=== PATIENT | female | born 2000 | race Two or more races ===

== ENCOUNTER 2024-11-05 08:13 | Outpatient (AMB) | payer MEDICAID, SELFPAY ==
[2024-11-05 08:27] VITALS: BP 114/77; PULSE 88; RESP 16; TEMP 36.3; O2SAT 98; BMI 29.5
--- NOTE | 2024-11-05 08:27 | AMB.OBINITIA ---
Vital Signs 11/05/24 08:27 Height 1.47 m Height Method Stated Weight 64.07 kg Weight Measurement Method Standing Scale BMI 29.5 BP 114/77 Blood Pressure Source Automatic Cuff Blood Pressure Location Left Upper Arm Position Sitting Respiration 16 Pulse 88 Pulse Source Monitor Temp 97.3 F Temp Source Oral Pulse Oximetry (%) 98 Oxygen Delivery Method Room Air Allergies/Home Meds Allergies & Medications Allergies No Known Allergies Allergy (Verified 11/05/24 08:29) Medication Reconciliation folic acid 400 mcg tablet 0.4 mg PO QDAY 11/05/24 [History Confirmed 11/05/24] Intake Visit Data Collection New Patient or Established: Established Patient (seen at [facility] within 3 years) Reason for Visit:: care Seen by Clinical Staff ONLY (RN/MA): No Environmental Resource Specialist Required: Yes Environmental Resource Specialist's name/title: Belle Dunbar Do You Feel Safe at Home: Yes Authorities Contacted: N/A PCP or OBGYN visit in last 3 months: No Hx Now: Yes Are you currently on any form of Control: No Last menstrual period: 03/24/24 Pain Present Currently: No Pain Scale Used: Gandhi-Fung/Numerical Pain scale:: 0 Smoking Status Smoking Status: Never smoker Questionnaires Covid-19 Vaccine Questionnaire Has patient been vacinated for Covid-19 Have you been vacinated for Covid-19: No PHQ-9 PHQ-2 Over the last 2 weeks, how often have you been bothered by any of the following problems? 1. Little interest or pleasure in doing things: not at all 2. Feeling down, depressed, or hopeless: not at all Total score: 0 PHQ-9 3. Trouble falling or staying asleep, or sleeping too much: Not at all 4. Feeling tired or having little energy: Not at all 5. Poor appetite or overeating: Not at all 6. Feeling bad about yourself - or that you are a failure or have let yourself or your family down: Not at all 7. Trouble concentrating on things, such as reading the newspaper or watching television: Not at all 8. Moving or speaking so slowly that other people could have noticed? - Or the opposite - being so fidgety or restless that you have been moving around a lot more than usual: not at all 9. Thoughts that you would be better off or of hurting yourself in some way: Not at all Total score: 0 Source: Developed by Drs. Blas Chavez, Madeline Palencia, Ted Maldonado and colleagues, with an educational monica from [employer]. Depression screen completed yes Social History Living Situation History Marital Status: Lives With: Family Housing: House Tobacco History Smoking Status: Never smoker Second Hand Smoke Exposure: No Alcohol History Alcohol Intake: Never Substance Use History Substance Use: none Domestic Abuse History Do You Feel Safe at Home: Yes Past Medical History Past Medical History Have you ever been diagnosed with any of the following: Neurological Problems Cerebrovascular Accident (CVA): No Transient Ischemic Attacks (TIA): No Seizures: No Guillain-Porterfield Syndrome: No Cardiology Problems Myocardial Infarction: No Cardiac Arrhythmia: No Atrial Fibrillation: No Angina: No Heart Murmur: No Respiratory Problems Chronic Obstructive Pulmonary Disease (COPD): No Asthma: No Bronchitis: No Pneumonia: No Tuberculosis: No Hx Cough: No Cough: No Wheezing: No Chest Deformities: No Smoking: No Stomache/Intestinal Problems Liver Cancer: No Hepatitis: No Cirrhosis: No Colitis: No Diverticulitis: No Diverticulosis: No Genital/Urinary Problems Chronic Kidney Disease: No Renal Disease: No Kidney Stones: No Reproductive Problems Breast Cancer: No Endometriosis: No Fibroids: No Genital Herpes: No Gonorrhea: No Pelvic Inflammatory Disease: No Polycystic Ovarian Syndrome: No Previous Pregnancies: No Syphilis: No Testicular Cancer: No Uterine Prolapse: No Musculoskeletal Problems Muscular Dystrophy: No Myasthenia Gravis: No Marfan's Syndrome: No Bone Cancer: No Arthritis: No Rheumatoid Arthritis: No Osteoporosis: No Degenerative Disk Disease: No Gout: No Scoliosis: No Carpal Tunnel Syndrome: No Head,Eye,Nose,Throat Problems Cataracts: No Glaucoma: No Blind: No Retinal Detachment: No Macular Degeneration: No Chronic Ear Infections: No Deafness: No Eye Prosthesis: No Endocrine Problems Diabetes Mellitus Type 1: No Diabetes Mellitus Type 2: No Hypoglycemia: No Ebensburg's Syndrome: No Wallace's Disease: No Hyperthyroidism: No Hypothyroidism: No Thyroid Cancer: No Parathyroid Disease: No Pituitary Disease: No Systemic Lupus Erythematosus: No Syndrome of Inappropriate Antidiuretic Hormone: No Adrenal Disease: No Graves' Disease: No Blood Problems Anemia: No Leukemia: No Hemophilia: No Thalassemia: No Sickle Cell Disease: No Clotting Problems: No Psychologic Problems Schizophrenia: No Recreational Drug Use: No Bipolar Disorder: No Depression: No Anxiety: No Behavior Problems: No Self-Mutilation: No Attention Deficit Disorder: No Attention Deficit Hyperactivity Disorder: No Depression: No Post Traumatic Stress Disorder: No Eating Disorder: No Other Problems Hospitalization: No Autoimmune Disease: No Down Syndrome: No Autism: No Developmental Delay: No Cosmetic Surgery: No Shingles: No Falls: No Blood Transfusions: No Blood Transfusion Reaction: No Anesthesia Reactions: No Organ Transplant: No Chemotherapy: No Radiation Therapy: No Hyperbaric Therapy: No MRSA: No Surgical History Angioplasty: No Appendectomy: No Bariatric Surgery: No Breast Surgery: No Cancer Surgery: No Carotid Endarterectomy: No Cholecystectomy: No Colectomy: No Colostomy: No Coronary Artery Bypass Graft: No Valve Replacement: No Herniorrhaphy: No History of Present Illness HPI Narrative Patient is a 24-year-old at 32 weeks gestation, presenting for transfer of care from an outside facility. Estimated due date is 12-30-2024 based on last menstrual period of 03-24-2024, consistent with first trimester ultrasound at 11 weeks 5 days and second trimester ultrasound at 27 weeks 2 days. Patient has a history of three full-term vaginal deliveries, all in [place], with no reported complications. Initial labs from 07-02-2024 show blood group O-positive, negative antibody screen, non-reactive RPR, negative Hepatitis B, HIV, gonorrhea, and chlamydia. One-hour glucose tolerance test on 10-01-2024 was 146, followed by a three-hour glucose tolerance test on 10-11-2024 with results of 83, 134, 117, and 100. Cystic fibrosis and NIPT testing were also performed. A follow-up ultrasound is planned around 36 weeks to assess growth and measurements. The patient confirmed taking vitamins and was asked about any issues with previous pregnancies or the current , as well as if they have any questions. OB Initial Visit Menstrual History Menstrual reliability: definite Flow: normal Menstrual regularity: regular Monthly: Yes Age at menarche: 11 On control pills at conception: No Date of positive home test: 04/22/24 Associated symptoms (LMP): Reports fatigue OB History : 4 Para: 3 Hx # Pregnancies: 0 Hx Total # of Abortions (Spontaneous & Elective): 0 # of Living Children: 3 Delivery History 1st : Child's name: Kalee date: 02/28/14 sex: female Gestational age at delivery (weeks): 40 Delivery type: vaginal Delivery complications: none History of depression before or after : No 2nd : Child's name: Beverly date: 08/05/15 sex: female Gestational age at delivery (weeks): 40 Delivery type: vaginal Delivery complications: none History of depression before or after : No 3rd : Child's name: Porsha date: 07/29/17 sex: female Gestational age at delivery (weeks): 40 Delivery type: vaginal Delivery complications: none History of depression before or after : No Infection History & Risk Evaluation History of STDs: none Genetic Screening & History Genetic Screening/Teratology Counseling - Includes patient, baby's father, or anyone in either family with: 1. Patient's age 35 years or older as of estimated date of delivery: No 2. Thalassemia (Maori, Bermudian, Mediterranean, or Background); MCV less than 80: No 3. Neural Tube Defect (Meningomyelocele, Spina Bifida, or Anencephaly): No 4. Congenital Heart Defect: No 5. Down Syndrome: No 6. Michael-Sachs (Ashkenazi Samaritan, Cajun, Angolan Emirati): No 7. Avani Disease (Ashkenazi Samaritan): No 8. Familial Dysautonomia (Ashkenazi Samaritan): No 9. Sickle Cell Disease or Trait (): No 10. Hemophilia or other blood disorders: No 11. Muscular Dystrophy: No 12. Cystic Fibrosis: No 13. Negar's Chorea: No 14. Mental Retardation/Autism: No 15. Other inherited genetic or chromosomal disorder: No 16. Maternal Metabolic Disorder (EG,TYPE 1 Diabetes, PKU): No 17. Patient or baby's father had a child with defects not listed above: No 18. Recurrent loss or a stillbirth: No 19. Medications (including supplements, vitamins, herbs or otc drugs)/illicit/recreational drugs/alcohol since last menstrual period: No 20. Any other: No Infection History 1. Live with someone with TB or exposed to TB: No 2. Rash or viral illness since last menstrual period: No 3. Hepatitis B,C: No Other (see comments) Source: [employer] OB Flowsheet OB Flowsheet Initial Weight: Not Recorded Date <del>?</del> EGA Weight Edema CTX Effacement BP Fundal ht Pres Dilation Effacement Station Visit Note Alb Glu FHR Mov 11/05/24 <del>?</del> 33w 0d 64.07 kg 114/77 145 Review of Systems Review of Systems Systems Reviewed: All systems reviewed, normal except as documented Constitutional Constitutional: Reports fatigue Endocrine Endocrine: Reports fatigue Exam General Limitations: no limitations General Appearance: alert, in no apparent distress, comfortable, cooperative, healthy appearing, well developed and well groomed Head Head exam: atraumatic, normocephalic and normal inspection Eye Eye exam: Present normal appearance, PERRL and EOMI ENT ENT exam: Present normal exam, normal oropharynx and mucous membranes moist Neck Neck exam: Present normal inspection, full ROM and trachea midline Chest Chest inspection: Present normal inspection and symmetric chest wall rise Abdominal Abdominal exam: Present soft and normal bowel sounds Psych Psychiatric exam: Present normal affect and normal mood Skin Skin exam: Present warm, dry, intact and normal color Assessment & Plan Diagnosis / Problem List (1) Supervision of high risk , unspecified, third trimester: Status: Acute Plan: , at 32 weeks gestation: - 24-year-old at 32 weeks gestation presenting for transfer of care. - BONY 12-30-2024 based on LMP 03-24-2024, consistent with ultrasounds. - History of 3 full-term vaginal deliveries in [place] without reported complications. - labs from 07-02-2024 show blood type O+, negative antibody screen, non-reactive RPR, negative for Hepatitis B, HIV, gonorrhea, and chlamydia. - One-hour glucose tolerance test on 10-01-2024 was 146, followed by 3-hour test on 10-11-2024 with values 83, 134, 117, 100. - Cystic fibrosis and NIPT testing performed, results not specified. - Current heart rate 145 bpm, noted as normal. - Patient is taking vitamins. - All records, including labs and ultrasounds, reviewed and satisfactory. Plan: - Follow-up appointment scheduled in 2 weeks. - Growth ultrasound planned for 36 weeks gestation. - Continue vitamins. Office Procedures OB Clinic LOC & Office Proc's Nursing/Assessment Patient Status: Initial/New Patient OB Clinic Nursing Assessment: Medication Reconciliation, Update PMH in EMR and Vital Signs OB Clinic Coordination of Care: Complex Care and Chronic Disease 1-5, Consent,records obtained, informed consent, Education Simp Pt/Fam, Lab and Imaging orders, Results/Orders obtained and Staff clarify orders Special Needs: Heart tones and Language special needs New Patient Charge New Patient Point Assignment: [id number] New Patient Point Charge: ELECTRONICS ENGINEERING MANAGER Level 4 ([id number]) Antepartum Initial or Follow-up Antepartum Initial Visit: Yes
== END 2024-11-05 08:56 | disposition home or self-care (01) ==
LOC: HODSOBC 08:13
PROVIDERS: PCP Obstetrics & Gynecology; Supervising Provider Obstetrics & Gynecology; Visit Provider Obstetrics & Gynecology
DX: O09.93 Supervision of high risk pregnancy, unspecified, third trimester (principal)
CPT/HCPCS: 76801; 99204; 99214; G0463

== ENCOUNTER 2024-11-19 10:53 | Outpatient (AMB) | payer MEDICAID, SELFPAY ==
--- NOTE | 2024-11-19 10:54 | AMB.OBVISIT ---
Vital Signs 11/19/24 11:03 Height 1.47 m Height Method Stated Weight 65.034 kg Weight Measurement Method Standing Scale BMI 30.1 BP 122/82 Blood Pressure Source Automatic Cuff Blood Pressure Location Left Upper Arm Position Sitting Respiration 18 Pulse 92 Pulse Source Monitor Temp 97.7 F Temp Source Oral Pulse Oximetry (%) 98 Oxygen Delivery Method Room Air Allergies/Home Meds Allergies & Medications Allergies No Known Allergies Allergy (Verified 11/19/24 11:05) Medication Reconciliation folic acid 400 mcg tablet 0.4 mg PO QDAY 11/05/24 [History Confirmed 11/19/24] Intake Visit Data Collection New Patient or Established: Established Patient (seen at [facility] within 3 years) Reason for Visit:: OBC 35w Seen by Clinical Staff ONLY (RN/MA): No Manager Asset Management Required: Yes Manager Asset Management's name/title: JOSE BETANCOURT Do You Feel Safe at Home: Yes Authorities Contacted: N/A PCP or OBGYN visit in last 3 months: No Hx Now: Yes Are you currently on any form of Control: No Last menstrual period: 03/24/24 Pain Present Currently: No Pain Scale Used: Gandhi-Fung/Numerical Pain scale:: 0 Smoking Status Smoking Status: Never smoker Questionnaires Covid-19 Vaccine Questionnaire Has patient been vacinated for Covid-19 Have you been vacinated for Covid-19: No PHQ-9 PHQ-2 Over the last 2 weeks, how often have you been bothered by any of the following problems? 1. Little interest or pleasure in doing things: more than half the days 2. Feeling down, depressed, or hopeless: several days Total score: 3 PHQ-9 3. Trouble falling or staying asleep, or sleeping too much: Several days 4. Feeling tired or having little energy: Several days 5. Poor appetite or overeating: Not at all 6. Feeling bad about yourself - or that you are a failure or have let yourself or your family down: Not at all 7. Trouble concentrating on things, such as reading the newspaper or watching television: Not at all 8. Moving or speaking so slowly that other people could have noticed? - Or the opposite - being so fidgety or restless that you have been moving around a lot more than usual: not at all 9. Thoughts that you would be better off or of hurting yourself in some way: Not at all Total score: 5.0 If you checked off any problems, how difficult have these problems made it for you to do your work, take care of things at home, or get along with other people?: somewhat difficult Source: Developed by Drs. Blas Chavez, Madeline Palencia, Ted Maldonado and colleagues, with an educational monica from [employer]. Depression screen completed yes Social History Living Situation History Lives With: Family Housing: House Tobacco History Smoking Status: Never smoker Second Hand Smoke Exposure: No Alcohol History Alcohol Intake: Never Substance Use History Substance Use: none Domestic Abuse History Do You Feel Safe at Home: Yes Past Medical History Past Medical History Have you ever been diagnosed with any of the following: Neurological Problems Cerebrovascular Accident (CVA): No Transient Ischemic Attacks (TIA): No Dementia: No Alzheimer's Disease: No Seizures: No Guillain-Moreland Syndrome: No Cardiology Problems Myocardial Infarction: No Cardiac Arrhythmia: No Atrial Fibrillation: No Angina: No Heart Murmur: No Respiratory Problems Chronic Obstructive Pulmonary Disease (COPD): No Asthma: No Bronchitis: No Pneumonia: No Tuberculosis: No Hx Cough: No Cough: No Wheezing: No Chest Deformities: No Smoking: No Stomache/Intestinal Problems Liver Cancer: No Hepatitis: No Cirrhosis: No Colitis: No Diverticulitis: No Diverticulosis: No Genital/Urinary Problems Renal Disease: No Kidney Stones: No Reproductive Problems Breast Cancer: No Endometriosis: No Fibroids: No Genital Herpes: No Gonorrhea: No Pelvic Inflammatory Disease: No Polycystic Ovarian Syndrome: No Previous Pregnancies: No Syphilis: No Testicular Cancer: No Uterine Prolapse: No Musculoskeletal Problems Muscular Dystrophy: No Myasthenia Gravis: No Marfan's Syndrome: No Bone Cancer: No Arthritis: No Rheumatoid Arthritis: No Osteoporosis: No Degenerative Disk Disease: No Gout: No Scoliosis: No Carpal Tunnel Syndrome: No Head,Eye,Nose,Throat Problems Cataracts: No Glaucoma: No Blind: No Retinal Detachment: No Macular Degeneration: No Chronic Ear Infections: No Deafness: No Eye Prosthesis: No Endocrine Problems Diabetes Mellitus Type 1: No Diabetes Mellitus Type 2: No Hypoglycemia: No Neetu's Syndrome: No Jayuya's Disease: No Hyperthyroidism: No Hypothyroidism: No Thyroid Cancer: No Parathyroid Disease: No Pituitary Disease: No Systemic Lupus Erythematosus: No Syndrome of Inappropriate Antidiuretic Hormone: No Adrenal Disease: No Graves' Disease: No Blood Problems Anemia: No Leukemia: No Hemophilia: No Thalassemia: No Sickle Cell Disease: No Clotting Problems: No Psychologic Problems Schizophrenia: No Recreational Drug Use: No Bipolar Disorder: No Depression: No Anxiety: No Behavior Problems: No Self-Mutilation: No Attention Deficit Disorder: No Attention Deficit Hyperactivity Disorder: No Depression: No Post Traumatic Stress Disorder: No Eating Disorder: No Other Problems Hospitalization: No Down Syndrome: No Autism: No Developmental Delay: No Cosmetic Surgery: No Shingles: No Falls: No Blood Transfusions: No Blood Transfusion Reaction: No Anesthesia Reactions: No Organ Transplant: No Chemotherapy: No Radiation Therapy: No Hyperbaric Therapy: No MRSA: No Surgical History Angioplasty: No Appendectomy: No Bariatric Surgery: No Breast Surgery: No Cancer Surgery: No Carotid Endarterectomy: No Cholecystectomy: No Colectomy: No Colostomy: No Coronary Artery Bypass Graft: No Valve Replacement: No Herniorrhaphy: No History of Present Illness HPI Narrative The patient is a 24-year-old at 35 weeks' gestation with an estimated due date of December 30, 2024. She reports normal movement and denies contractions. The patient mentions experiencing pain, identified as round ligament pain due to the stretching of the uterine ligaments from the weight of the growing fetus. Initial labs from 07-02-2024 show blood group O-positive, negative antibody screen, non-reactive RPR, negative Hepatitis B, HIV, gonorrhea, and chlamydia. One-hour glucose tolerance test on 10-01-2024 was 146, followed by a three-hour glucose tolerance test on 10-11-2024 with results of 83, 134, 117, and 100. Cystic fibrosis and NIPT testing were also performed. A follow-up ultrasound is planned around 36 weeks to assess growth and measurements. The patient confirmed taking vitamins and was asked about any issues with previous pregnancies or the current , as well as if they have any questions She is preparing for the baby's arrival, including setting up the car seat, and has been advised to sleep on her side for pain relief. The clinician reminded her that she could go into labor at any time and should start preparing. Review of Systems Review of Systems Systems Reviewed: All systems reviewed, normal except as documented Visit BONY Calculator Estimated Delivery Date Method Current WG Current Estimate 12/24/24 Ultrasound #2 35w 2d Other Estimates 12/29/24 LMP (Certain) 34w 4d 12/26/24 Ultrasound #1 35w 0d Initial Weight: Not Recorded Date <del>?</del> EGA Weight Edema CTX Effacement BP Fundal ht Pres Dilation Effacement Station Visit Note Alb Glu FHR Mov 11/05/24 <del>?</del> 33w 0d 64.07 kg 114/77 145 11/19/24 <del>?</del> 35w 0d 65.034 kg 122/82 160 active Exam General Limitations: no limitations General Appearance: alert, in no apparent distress, comfortable, cooperative, healthy appearing, well developed and well groomed Head Head exam: atraumatic, normocephalic and normal inspection Neck Neck exam: Present normal inspection, full ROM and trachea midline Chest Chest inspection: Present normal inspection and symmetric chest wall rise Abdominal Abdominal exam: Present soft and normal bowel sounds Extremities Extremities exam: Present normal inspection and full ROM Back Back exam: Present normal inspection and full ROM Psych Psychiatric exam: Present normal affect and normal mood Skin Skin exam: Present warm, dry, intact and normal color Assessment & Plan Diagnosis / Problem List (1) Supervision of high risk , unspecified, third trimester: Status: Acute Plan: at 32 Weeks Gestation: - Patient is 24-year-old at 35 weeks' gestation. - Estimated due date: December 30, 2024. - All previous deliveries were vaginal. - movement present, no contractions reported. - heart rate: 160 bpm (noted as normal). - Group B Streptococcus (GBS) culture swab scheduled for next week at 36 weeks gestation. - Follow-up appointment scheduled for next week. - Advised to prepare for potential labor, including having car seat ready. - Recommended sleeping on side for pain relief from ligament stretching. Round Ligament Pain: - Patient reports pain attributed to stretching of uterine ligaments. - Considered normal occurrence at this stage of . - Expected to continue until delivery. - Advised to sleep on side for pain relief. - Open line of communication maintained, patient encouraged to ask questions. Office Procedures OB Clinic LOC & Office Proc's Nursing/Assessment Patient Status: Established Patient OB Clinic Nursing Assessment: Medication Reconciliation, Update PMH in EMR and Vital Signs OB Clinic Coordination of Care: Complex Care and Chronic Disease 1-5, Consent,records obtained, informed consent, Education Simp Pt/Fam and Staff clarify orders Special Needs: Heart tones Established Patient Charge Established Patient Point Assignment: 115 Established Patient Point Charge: EP Level 3 (80-115)
[2024-11-19 11:03] VITALS: BP 122/82; PULSE 92; RESP 18; TEMP 36.5; O2SAT 98; BMI 30.1
== END 2024-11-19 11:10 | disposition home or self-care (01) ==
LOC: HODSOBC 10:53
PROVIDERS: PCP Obstetrics & Gynecology; Referring Provider Obstetrics & Gynecology; Supervising Provider Obstetrics & Gynecology; Visit Provider Obstetrics & Gynecology
DX: O09.93 Supervision of high risk pregnancy, unspecified, third trimester (principal); R10.2 Pelvic and perineal pain; Z3A.32 32 weeks gestation of pregnancy
CPT/HCPCS: 99213; G0463

== ENCOUNTER 2024-11-29 10:47 | Outpatient (AMB) | payer MEDICAID, SELFPAY ==
[2024-11-29 11:01] VITALS: BP 110/76; PULSE 89; RESP 16; TEMP 36.6; O2SAT 98; BMI 29.7
--- NOTE | 2024-11-29 11:01 | AMB.OBVISIT ---
Vital Signs 11/29/24 11:01 Height 1.47 m Height Method Stated Weight 64.183 kg Weight Measurement Method Standing Scale BMI 29.7 BP 110/76 Blood Pressure Source Automatic Cuff Blood Pressure Location Left Upper Arm Position Sitting Respiration 16 Pulse 89 Pulse Source Monitor Temp 97.9 F Temp Source Oral Pulse Oximetry (%) 98 Oxygen Delivery Method Room Air Allergies/Home Meds Allergies & Medications Allergies No Known Allergies Allergy (Verified 11/29/24 11:02) Medication Reconciliation folic acid 400 mcg tablet 0.4 mg PO QDAY 11/05/24 [History Confirmed 11/29/24] Intake Visit Data Collection New Patient or Established: Established Patient (seen at [facility] within 3 years) Reason for Visit:: CARE Seen by Clinical Staff ONLY (RN/MA): No Mold Yarn Supervisor Required: Yes Mold Yarn Supervisor's name/title: JOSE BETANCOURT Do You Feel Safe at Home: Yes Authorities Contacted: N/A PCP or OBGYN visit in last 3 months: Yes Date of Last PCP or OBGYN visit: 11/19/24 Hx Now: Yes Are you currently on any form of Control: No Last menstrual period: 03/24/24 Pain Present Currently: No Pain Scale Used: Gandhi-Ufng/Numerical Pain scale:: 0 Smoking Status Smoking Status: Never smoker Questionnaires Covid-19 Vaccine Questionnaire Has patient been vacinated for Covid-19 Have you been vacinated for Covid-19: No PHQ-9 PHQ-2 Over the last 2 weeks, how often have you been bothered by any of the following problems? 1. Little interest or pleasure in doing things: not at all 2. Feeling down, depressed, or hopeless: not at all Total score: 0 PHQ-9 3. Trouble falling or staying asleep, or sleeping too much: Not at all 4. Feeling tired or having little energy: Not at all 5. Poor appetite or overeating: Not at all 6. Feeling bad about yourself - or that you are a failure or have let yourself or your family down: Not at all 7. Trouble concentrating on things, such as reading the newspaper or watching television: Not at all 8. Moving or speaking so slowly that other people could have noticed? - Or the opposite - being so fidgety or restless that you have been moving around a lot more than usual: not at all 9. Thoughts that you would be better off or of hurting yourself in some way: Not at all Total score: 0 If you checked off any problems, how difficult have these problems made it for you to do your work, take care of things at home, or get along with other people?: not difficult at all Source: Developed by Drs. Blas Chavez, Madeline Palencia, Ted Maldonado and colleagues, with an educational monica from [employer]. Depression screen completed yes Social History Living Situation History Marital Status: Lives With: Family Housing: House Tobacco History Smoking Status: Never smoker Second Hand Smoke Exposure: No Alcohol History Alcohol Intake: Never Substance Use History Substance Use: none Domestic Abuse History Do You Feel Safe at Home: Yes Past Medical History Past Medical History Have you ever been diagnosed with any of the following: Neurological Problems Cerebrovascular Accident (CVA): No Transient Ischemic Attacks (TIA): No Dementia: No Alzheimer's Disease: No Seizures: No Guillain-[place] Syndrome: No Cardiology Problems Myocardial Infarction: No Cardiac Arrhythmia: No Atrial Fibrillation: No Angina: No Heart Murmur: No Respiratory Problems Chronic Obstructive Pulmonary Disease (COPD): No Asthma: No Bronchitis: No Pneumonia: No Tuberculosis: No Hx Cough: No Cough: No Wheezing: No Chest Deformities: No Smoking: No Stomache/Intestinal Problems Liver Cancer: No Hepatitis: No Cirrhosis: No Colitis: No Diverticulitis: No Diverticulosis: No Genital/Urinary Problems Renal Disease: No Kidney Stones: No Reproductive Problems Breast Cancer: No Endometriosis: No Fibroids: No Genital Herpes: No Gonorrhea: No Pelvic Inflammatory Disease: No Polycystic Ovarian Syndrome: No Previous Pregnancies: No Syphilis: No Testicular Cancer: No Uterine Prolapse: No Musculoskeletal Problems Muscular Dystrophy: No Myasthenia Gravis: No Marfan's Syndrome: No Bone Cancer: No Arthritis: No Rheumatoid Arthritis: No Osteoporosis: No Degenerative Disk Disease: No Gout: No Scoliosis: No Carpal Tunnel Syndrome: No Head,Eye,Nose,Throat Problems Cataracts: No Glaucoma: No Blind: No Retinal Detachment: No Macular Degeneration: No Chronic Ear Infections: No Deafness: No Eye Prosthesis: No Endocrine Problems Diabetes Mellitus Type 1: No Diabetes Mellitus Type 2: No Hypoglycemia: No [place]u's Syndrome: No Calvin's Disease: No Hyperthyroidism: No Hypothyroidism: No Thyroid Cancer: No Parathyroid Disease: No Pituitary Disease: No Systemic Lupus Erythematosus: No Syndrome of Inappropriate Antidiuretic Hormone: No Adrenal Disease: No Graves' Disease: No Blood Problems Anemia: No Leukemia: No Hemophilia: No Thalassemia: No Sickle Cell Disease: No Clotting Problems: No Psychologic Problems Schizophrenia: No Recreational Drug Use: No Bipolar Disorder: No Depression: No Anxiety: No Behavior Problems: No Self-Mutilation: No Attention Deficit Disorder: No Attention Deficit Hyperactivity Disorder: No Depression: No Post Traumatic Stress Disorder: No Eating Disorder: No Other Problems Hospitalization: No Down Syndrome: No Autism: No Developmental Delay: No Cosmetic Surgery: No Shingles: No Falls: No Blood Transfusions: No Blood Transfusion Reaction: No Anesthesia Reactions: No Organ Transplant: No Chemotherapy: No Radiation Therapy: No Hyperbaric Therapy: No MRSA: No Surgical History Angioplasty: No Appendectomy: No Bariatric Surgery: No Breast Surgery: No Cancer Surgery: No Carotid Endarterectomy: No Cholecystectomy: No Colectomy: No Colostomy: No Coronary Artery Bypass Graft: No Valve Replacement: No Herniorrhaphy: No History of Present Illness HPI Narrative The patient, Karla Gibson, is a woman at approximately 37 weeks gestation. She reports good movement and denies any contractions or other problems related to her . No CTX/LOF/VB, reports good FM+ Initial labs from 07-02-2024 show blood group O-positive, negative antibody screen, non-reactive RPR, negative Hepatitis B, HIV, gonorrhea, and chlamydia. One-hour glucose tolerance test on 10-01-2024 was 146, followed by a three-hour glucose tolerance test on 10-11-2024 with results of 83, 134, 117, and 100. Cystic fibrosis and NIPT testing were also performed. A follow-up ultrasound is planned around 36 weeks to assess growth and measurements. The patient confirmed taking vitamins and was asked about any issues with previous pregnancies or the current , as well as if they have any questions She is preparing for the baby's arrival, including setting up the car seat, and has been advised to sleep on her side for pain relief. The clinician reminded her that she could go into labor at any time and should start preparing. Review of Systems Review of Systems Systems Reviewed: All systems reviewed, normal except as documented Visit BONY Calculator Estimated Delivery Date Method Current WG Current Estimate 12/24/24 Ultrasound #2 37w 1d Other Estimates 12/29/24 LMP (Certain) 36w 3d 12/26/24 Ultrasound #1 36w 6d Initial Weight: Not Recorded Date <del>?</del> EGA Weight Edema CTX Effacement BP Fundal ht Pres Dilation Effacement Station Visit Note Alb Glu FHR Mov 11/05/24 <del>?</del> 33w 0d 64.07 kg 114/77 145 11/19/24 <del>?</del> 35w 0d 65.034 kg 122/82 160 active Exam General Limitations: no limitations General Appearance: alert, in no apparent distress, comfortable, cooperative, healthy appearing, well developed and well groomed Head Head exam: atraumatic, normocephalic and normal inspection Neck Neck exam: Present normal inspection, full ROM and trachea midline Chest Chest inspection: Present normal inspection and symmetric chest wall rise Abdominal Abdominal exam: Present soft and normal bowel sounds Extremities Extremities exam: Present normal inspection and full ROM Back Back exam: Present normal inspection and full ROM Psych Psychiatric exam: Present normal affect and normal mood Skin Skin exam: Present warm, dry, intact and normal color Assessment & Plan Diagnosis / Problem List (1) Supervision of high risk , unspecified, third trimester: Status: Acute Plan: Routine care at 37 weeks gestation Patient is approaching 37 weeks gestation. heart rate was auscultated at 161 bpm, which is within normal range. Patient reports good movement and denies contractions or other problems. - Group B Streptococcus (GBS) culture swab performed - Follow-up appointment scheduled in one week - Patient is 24-year-old - Estimated due date: December 30, 2024. - All previous deliveries were vaginal. - movement present, no contractions reported. - heart rate: 160 bpm (noted as normal). - Group B Streptococcus (GBS) culture swab scheduled for next week at 36 weeks gestation. - Follow-up appointment scheduled for next week. - Advised to prepare for potential labor, including having car seat ready. - Recommended sleeping on side for pain relief from ligament stretching. Educated the patient on labor signs, including regular contractions, lower back pain, and changes in vaginal discharge. Advised avoiding heavy lifting and getting adequate rest. Instructed to contact the office immediately if any signs occur. Discussed the importance of a balanced diet rich in folic acid, iron, and calcium, and provided a list of recommended and to-avoid foods. Emphasized avoiding high-sugar foods to reduce gestational diabetes risk. Encouraged hydration and frequent, small meals for energy. Office Procedures OB Clinic LOC & Office Proc's Nursing/Assessment Patient Status: Established Patient OB Clinic Nursing Assessment: Medication Reconciliation, Update PMH in EMR and Vital Signs OB Clinic Coordination of Care: Complex Care and Chronic Disease 1-5, Consent,records obtained, informed consent, Education Simp Pt/Fam, Lab and Imaging orders and Staff clarify orders Special Needs: Heart tones Miscellaneous Interventions: Culture Specimen Collection Established Patient Charge Established Patient Point Assignment: 145 Established Patient Point Charge: EP Level 4 (120-155)
== END 2024-11-29 11:10 | disposition home or self-care (01) ==
LOC: HODSOBC 10:47
PROVIDERS: PCP Obstetrics & Gynecology; Referring Provider Obstetrics & Gynecology; Supervising Provider Obstetrics & Gynecology; Visit Provider Obstetrics & Gynecology
DX: O09.93 Supervision of high risk pregnancy, unspecified, third trimester (principal); Z3A.37 37 weeks gestation of pregnancy
CPT/HCPCS: 99214; G0463

== ENCOUNTER 2024-12-05 10:51 | Outpatient (AMB) | payer MEDICAID, SELFPAY ==
[2024-12-05 11:03] VITALS: BP 132/82; PULSE 101; RESP 18; TEMP 36.6; O2SAT 98; BMI 30.5
--- NOTE | 2024-12-05 11:03 | AMB.OBVISIT ---
Vital Signs 12/05/24 11:03 Height 1.47 m Height Method Stated Weight 65.998 kg Weight Measurement Method Standing Scale BMI 30.5 BP 132/82 H Blood Pressure Source Automatic Cuff Blood Pressure Location Left Upper Arm Position Sitting Respiration 18 Pulse 101 H Pulse Source Monitor Temp 97.8 F Temp Source Oral Pulse Oximetry (%) 98 Oxygen Delivery Method Room Air Allergies/Home Meds Allergies & Medications Allergies No Known Allergies Allergy (Verified 02/14/25 14:29) Medication Reconciliation folic acid 400 mcg tablet 0.4 mg PO QDAY 11/05/24 [History Confirmed 02/14/25] acetaminophen 325 mg tablet 650 mg (2 x 325 mg) PO Q6HR PRN Patient rated pain of 3 #60 tabs 01/05/25 [Rx Confirmed 02/14/25] ibuprofen 400 mg tablet 800 mg (2 x 400 mg) PO Q8HR PRN Pain Scale 4-6 (Moderate #60 tabs 01/05/25 [Rx Confirmed 02/14/25] Intake Visit Data Collection New Patient or Established: Established Patient (seen at [facility] within 3 years) Reason for Visit:: CARE Seen by Clinical Staff ONLY (RN/MA): No Diamond Sizer And Sorter Required: Yes Diamond Sizer And Sorter's name/title: JOSE ABERNATHYREZ Do You Feel Safe at Home: Yes Authorities Contacted: N/A PCP or OBGYN visit in last 3 months: Yes Date of Last PCP or OBGYN visit: 11/29/24 Hx Now: Yes Are you currently on any form of Control: No Last menstrual period: 03/24/24 Pain Present Currently: No Pain Scale Used: Gandhi-Fung/Numerical Pain scale:: 0 Smoking Status Smoking Status: Never smoker Questionnaires Covid-19 Vaccine Questionnaire Has patient been vacinated for Covid-19 Have you been vacinated for Covid-19: No PHQ-9 PHQ-2 Over the last 2 weeks, how often have you been bothered by any of the following problems? 1. Little interest or pleasure in doing things: not at all 2. Feeling down, depressed, or hopeless: not at all Total score: 0 PHQ-9 3. Trouble falling or staying asleep, or sleeping too much: Not at all 4. Feeling tired or having little energy: Not at all 5. Poor appetite or overeating: Not at all 6. Feeling bad about yourself - or that you are a failure or have let yourself or your family down: Not at all 7. Trouble concentrating on things, such as reading the newspaper or watching television: Not at all 8. Moving or speaking so slowly that other people could have noticed? - Or the opposite - being so fidgety or restless that you have been moving around a lot more than usual: not at all 9. Thoughts that you would be better off or of hurting yourself in some way: Not at all Total score: 0 Source: Developed by Drs. Blas Chavez, Madeline Palencia, Ted Maldonado and colleagues, with an educational monica from [employer]. Depression screen completed yes Social History Living Situation History Marital Status: Lives With: Family Housing: House Tobacco History Smoking Status: Never smoker Second Hand Smoke Exposure: No Alcohol History Alcohol Intake: Never Substance Use History Substance Use: none Domestic Abuse History Do You Feel Safe at Home: Yes Past Medical History Past Medical History Have you ever been diagnosed with any of the following: Neurological Problems Cerebrovascular Accident (CVA): No Transient Ischemic Attacks (TIA): No Dementia: No Alzheimer's Disease: No Seizures: No Guillain-[place] Syndrome: No Cardiology Problems Myocardial Infarction: No Cardiac Arrhythmia: No Atrial Fibrillation: No Angina: No Heart Murmur: No Hypertension: No Respiratory Problems Chronic Obstructive Pulmonary Disease (COPD): No Asthma: No Bronchitis: No Pneumonia: No Tuberculosis: No Hx Cough: No Cough: No Wheezing: No Chest Deformities: No Smoking: No Stomache/Intestinal Problems Liver Cancer: No Hepatitis: No Cirrhosis: No Colitis: No Diverticulitis: No Diverticulosis: No Genital/Urinary Problems Chronic Kidney Disease: No Renal Disease: No Kidney Stones: No Reproductive Problems Breast Cancer: No Endometriosis: No Fibroids: No Genital Herpes: No Gonorrhea: No Pelvic Inflammatory Disease: No Polycystic Ovarian Syndrome: No Previous Pregnancies: No Syphilis: No Testicular Cancer: No Uterine Prolapse: No Musculoskeletal Problems Muscular Dystrophy: No Myasthenia Gravis: No Marfan's Syndrome: No Bone Cancer: No Arthritis: No Rheumatoid Arthritis: No Osteoporosis: No Degenerative Disk Disease: No Gout: No Scoliosis: No Carpal Tunnel Syndrome: No Head,Eye,Nose,Throat Problems Cataracts: No Glaucoma: No Blind: No Retinal Detachment: No Macular Degeneration: No Chronic Ear Infections: No Deafness: No Eye Prosthesis: No Endocrine Problems Diabetes Mellitus Type 1: No Diabetes Mellitus Type 2: No Hypoglycemia: No [place]'s Syndrome: No [place]'s Disease: No Hyperthyroidism: No Hypothyroidism: No Thyroid Cancer: No Parathyroid Disease: No Pituitary Disease: No Systemic Lupus Erythematosus: No Syndrome of Inappropriate Antidiuretic Hormone: No Adrenal Disease: No Graves' Disease: No Blood Problems Anemia: No Leukemia: No Hemophilia: No Thalassemia: No Sickle Cell Disease: No Clotting Problems: No Psychologic Problems Schizophrenia: No Recreational Drug Use: No Bipolar Disorder: No Depression: No Anxiety: No Behavior Problems: No Self-Mutilation: No Attention Deficit Disorder: No Attention Deficit Hyperactivity Disorder: No Depression: No Post Traumatic Stress Disorder: No Eating Disorder: No Other Problems Hospitalization: No Down Syndrome: No Autism: No Developmental Delay: No Cosmetic Surgery: No Shingles: No Falls: No Blood Transfusions: No Blood Transfusion Reaction: No Anesthesia Reactions: No Organ Transplant: No Chemotherapy: No Radiation Therapy: No Hyperbaric Therapy: No MRSA: No Hepatitis A: No Hepatitis B: No Hepatitis C: No Communicable Disease: No Cancer: No Cervical Cancer: No Lung Cancer: No Ovarian Cancer: No Surgical History Angioplasty: No Appendectomy: No Bariatric Surgery: No Breast Surgery: No Cancer Surgery: No Carotid Endarterectomy: No Cholecystectomy: No Colectomy: No Colostomy: No Coronary Artery Bypass Graft: No Valve Replacement: No Herniorrhaphy: No History of Present Illness HPI Narrative Presents for visit. Scheduled for induction of labor on 12/10/2024. No CTX/LOF/VB. FM not perceived. No LÓPEZ/ VS, Epig/RUQ Pain Exam General General Appearance: alert, in no apparent distress and healthy appearing Head Head exam: atraumatic Neck Neck exam: Present normal inspection and trachea midline Chest Chest inspection: Present normal inspection and symmetric chest wall rise External exam: Present normal external exam; Absent tenderness Neuro Neurological exam: Present oriented X3 Psych Psychiatric exam: Present normal affect and normal mood Office Procedures OB Clinic LOC & Office Proc's Nursing/Assessment Patient Status: Established Patient OB Clinic Nursing Assessment: Medication Reconciliation, Update PMH in EMR and Vital Signs OB Clinic Coordination of Care: Complex Care and Chronic Disease 1-5, Consent,records obtained, informed consent, Education Simp Pt/Fam and Staff clarify orders Special Needs: Heart tones Established Patient Charge Established Patient Point Assignment: 115 Established Patient Point Charge: EP Level 3 (80-115) Assessment & Plan Diagnosis / Problem List (1) Supervision of high risk , unspecified, third trimester: Status: Acute Plan labor precautions reviewed. Return in 1 weeks.
== END 2024-12-05 11:12 | disposition home or self-care (01) ==
LOC: HODSOBC 10:51
PROVIDERS: Supervising Provider Obstetrics & Gynecology; Visit Provider Obstetrics & Gynecology
DX: O09.93 Supervision of high risk pregnancy, unspecified, third trimester (principal); Z3A.00 Weeks of gestation of pregnancy not specified
CPT/HCPCS: 99213; G0463

== ENCOUNTER 2024-12-11 11:16 | Outpatient (AMB) | payer MEDICAID, SELFPAY ==
[2024-12-11 11:34] VITALS: BP 122/79; PULSE 100; RESP 16; TEMP 36; O2SAT 99; BMI 30.7
--- NOTE | 2024-12-11 11:34 | OBCLNT_ITS ---
Vital Signs 12/11/24 11:34 Height 1.47 m Height Method Stated Weight 66.395 kg Weight Measurement Method Standing Scale BMI 30.7 BP 122/79 Blood Pressure Source Automatic Cuff Blood Pressure Location Left Upper Arm Position Sitting Respiration 16 Pulse 100 Pulse Source Monitor Temp 96.8 F Temp Source Oral Pulse Oximetry (%) 99 Oxygen Delivery Method Room Air Allergies/Home Meds Allergies & Medications Allergies No Known Allergies Allergy (Verified 12/19/24 09:07) Medication Reconciliation folic acid 400 mcg tablet 0.4 mg PO QDAY 11/05/24 [History Confirmed 12/19/24] Intake Visit Data Collection New Patient or Established: Established Patient (seen at [facility] within 3 years) Reason for Visit:: OBC Seen by Clinical Staff ONLY (RN/MA): No Party Plan Salesperson Required: Yes Party Plan Salesperson's name/title: JOSE BETANCOURT / CONVEYOR FEEDER OFFBEARER Do You Feel Safe at Home: Yes Authorities Contacted: N/A PCP or OBGYN visit in last 3 months: Yes Date of Last PCP or OBGYN visit: 12/05/24 Hx Now: Yes Are you currently on any form of Control: No Pain Present Currently: No Pain Scale Used: Gandhi-Fung/Numerical Pain scale:: 0 Smoking Status Smoking Status: Never smoker Questionnaires Covid-19 Vaccine Questionnaire Has patient been vacinated for Covid-19 Have you been vacinated for Covid-19: Yes PHQ-9 PHQ-2 Over the last 2 weeks, how often have you been bothered by any of the following problems? 1. Little interest or pleasure in doing things: not at all 2. Feeling down, depressed, or hopeless: not at all Total score: 0 PHQ-9 3. Trouble falling or staying asleep, or sleeping too much: Not at all 4. Feeling tired or having little energy: Not at all 5. Poor appetite or overeating: Not at all 6. Feeling bad about yourself - or that you are a failure or have let yourself or your family down: Not at all 7. Trouble concentrating on things, such as reading the newspaper or watching television: Not at all 8. Moving or speaking so slowly that other people could have noticed? - Or the opposite - being so fidgety or restless that you have been moving around a lot more than usual: not at all 9. Thoughts that you would be better off or of hurting yourself in some way: Not at all Total score: 0 If you checked off any problems, how difficult have these problems made it for you to do your work, take care of things at home, or get along with other people?: not difficult at all Source: Developed by Drs. Blas Chavez, Madeline Palencia, Ted Maldonado and colleagues, with an educational monica from [employer]. Depression screen completed yes Social History Living Situation History Marital Status: Lives With: Family Housing: House Tobacco History Smoking Status: Never smoker Second Hand Smoke Exposure: No Alcohol History Alcohol Intake: Never Substance Use History Substance Use: none Domestic Abuse History Do You Feel Safe at Home: Yes Past Medical History Past Medical History Have you ever been diagnosed with any of the following: Neurological Problems Cerebrovascular Accident (CVA): No Transient Ischemic Attacks (TIA): No Dementia: No Alzheimer's Disease: No Seizures: No Guillain-[place] Syndrome: No Cardiology Problems Myocardial Infarction: No Cardiac Arrhythmia: No Atrial Fibrillation: No Angina: No Heart Murmur: No Hypertension: No Respiratory Problems Chronic Obstructive Pulmonary Disease (COPD): No Asthma: No Bronchitis: No Pneumonia: No Tuberculosis: No Hx Cough: No Cough: No Wheezing: No Chest Deformities: No Smoking: No Stomache/Intestinal Problems Liver Cancer: No Hepatitis: No Cirrhosis: No Colitis: No Diverticulitis: No Diverticulosis: No Genital/Urinary Problems Renal Disease: No Kidney Stones: No Reproductive Problems Breast Cancer: No Endometriosis: No Fibroids: No Genital Herpes: No Gonorrhea: No Pelvic Inflammatory Disease: No Polycystic Ovarian Syndrome: No Previous Pregnancies: No Syphilis: No Uterine Prolapse: No Musculoskeletal Problems Muscular Dystrophy: No Myasthenia Gravis: No Marfan's Syndrome: No Bone Cancer: No Arthritis: No Rheumatoid Arthritis: No Osteoporosis: No Degenerative Disk Disease: No Gout: No Scoliosis: No Carpal Tunnel Syndrome: No Head,Eye,Nose,Throat Problems Cataracts: No Glaucoma: No Blind: No Retinal Detachment: No Macular Degeneration: No Chronic Ear Infections: No Deafness: No Eye Prosthesis: No Endocrine Problems Diabetes Mellitus Type 1: No Diabetes Mellitus Type 2: No Hypoglycemia: No Neetu's Syndrome: No Calvin's Disease: No Hyperthyroidism: No Hypothyroidism: No Thyroid Cancer: No Parathyroid Disease: No Pituitary Disease: No Systemic Lupus Erythematosus: No Syndrome of Inappropriate Antidiuretic Hormone: No Adrenal Disease: No Graves' Disease: No Blood Problems Anemia: No Leukemia: No Hemophilia: No Thalassemia: No Sickle Cell Disease: No Clotting Problems: No Psychologic Problems Schizophrenia: No Recreational Drug Use: No Bipolar Disorder: No Depression: No Anxiety: No Behavior Problems: No Self-Mutilation: No Attention Deficit Disorder: No Attention Deficit Hyperactivity Disorder: No Depression: No Post Traumatic Stress Disorder: No Eating Disorder: No Other Problems Hospitalization: No Down Syndrome: No Autism: No Developmental Delay: No Cosmetic Surgery: No Shingles: No Falls: No Blood Transfusions: No Blood Transfusion Reaction: No Anesthesia Reactions: No Organ Transplant: No Chemotherapy: No Radiation Therapy: No Hyperbaric Therapy: No MRSA: No Hepatitis A: No Hepatitis B: No Hepatitis C: No Communicable Disease: No Cancer: No Cervical Cancer: No Lung Cancer: No Ovarian Cancer: No Surgical History Angioplasty: No Appendectomy: No Bariatric Surgery: No Breast Surgery: No Cancer Surgery: No Carotid Endarterectomy: No Cholecystectomy: No Colectomy: No Colostomy: No Coronary Artery Bypass Graft: No Valve Replacement: No Herniorrhaphy: No History of Present Illness HPI Narrative Karla Gibson, a woman at 38 weeks and 1 days gestation, presents for a routine visit. Her estimated delivery date is 12-24-2024. No CTX/LOF/VB. FM not perceived. No LÓPEZ/ VS, Epig/RUQ Pain Review of Systems Review of Systems Systems Reviewed: All systems reviewed, normal except as documented Visit BONY Calculator Estimated Delivery Date Method Current WG Current Estimate 12/24/24 Ultrasound #2 40w 0d Other Estimates 12/29/24 LMP (Certain) 39w 2d 12/26/24 Ultrasound #1 39w 5d Initial Weight: Not Recorded Date -?-?-?-?-?-?-?-?-?-?-?-?- EGA Weight Edema CTX Effacement BP Fundal ht Pres Dilation Effacement Station Visit Note Alb Glu FHR Mov 11/05/24 -?-?-?-?-?-?-?-?-?-?-?-?- 33w 0d 64.07 kg 114/77 145 11/19/24 -?-?-?-?-?-?-?-?-?-?-?-?- 35w 0d 65.034 kg 122/82 160 active 12/11/24 -?-?-?-?-?-?-?-?-?-?-?-?- 38w 1d 66.395 kg 122/79 No C TX/LOF/VB. FM not perceived. No LÓPEZ/ VS, Epig/RUQ Pain P/E: Educated the patient on lab or signs, including regular contractions, lower back pain, and changes in vaginal discharge. Advised avoiding heavy lifting and getting adequate rest. Instructed to contact the office immediately if any signs occur. Discussed the importance of a balanced diet rich in folic acid, iron, and calcium, and provided a list of recommended and to-avoid foods. Emphasized avoiding high-sugar foods to reduce gestational diabetes risk. Encouraged hydration and frequent, small meals for energy.. 145 active 12/19/24 -?-?-?-?-?-?-?-?-?-?-?-?- 39w 2d 66.224 kg 122/82 No CTX/LOF/VB. FM not perceived. No LÓPEZ/ VS, Epig/RUQ Pain - Schedule induction for next week (12/30 ) if spontaneous labor does not occur - Instruct patient to have someone nearb y who can drive her to the hospital - No further appointments sched uled - Will call hospital to book induction d ate - Provide patient with induction scheduling information 155 active Exam General Limitations: no limitations General Appearance: alert, in no apparent distress, comfortable, cooperative, healthy appearing, well developed and well groomed Head Head exam: atraumatic, normocephalic and normal inspection Chest Chest inspection: Present normal inspection and symmetric chest wall rise Abdominal Abdominal exam: Present soft and normal bowel sounds Psych Psychiatric exam: Present normal affect and normal mood Skin Skin exam: Present warm, dry, intact and normal color Assessment & Plan Diagnosis / Problem List (1) Supervision of high risk , unspecified, third trimester: Status: Acute Plan Educated the patient on labor signs, including regular contractions, lower back pain, and changes in vaginal discharge. Advised avoiding heavy lifting and getting adequate rest. Instructed to contact the office immediately if any signs occur. Discussed the importance of a balanced diet rich in folic acid, iron, and calcium, and provided a list of recommended and to-avoid foods. Emphasized avoiding high-sugar foods to reduce gestational diabetes risk. Encouraged hydration and frequent, small meals for energy.. Office Procedures OB Clinic LOC & Office Proc's Nursing/Assessment Patient Status: Established Patient OB Clinic Nursing Assessment: BP Monitoring, Medication Reconciliation, Update PMH in EMR and Vital Signs OB Clinic Coordination of Care: Consent,records obtained, informed consent, Education Simp Pt/Fam and Staff clarify orders Special Needs: Heart tones Established Patient Charge Established Patient Point Assignment: 105 Established Patient Point Charge: EP Level 3 (80-115)
== END 2024-12-11 11:50 | disposition home or self-care (01) ==
LOC: HODSOBC 11:16
PROVIDERS: Supervising Provider Obstetrics & Gynecology; Visit Provider Obstetrics & Gynecology
DX: O09.93 Supervision of high risk pregnancy, unspecified, third trimester (principal); Z3A.38 38 weeks gestation of pregnancy
CPT/HCPCS: 99213; G0463

== ENCOUNTER 2024-12-19 08:59 | Outpatient (AMB) | payer MEDICAID, SELFPAY ==
--- NOTE | 2024-12-19 09:04 | OBCLNT_ITS ---
Vital Signs 12/19/24 09:06 Height 1.47 m Height Method Stated Weight 66.224 kg Weight Measurement Method Standing Scale BMI 30.6 BP 122/82 Blood Pressure Source Automatic Cuff Blood Pressure Location Left Upper Arm Position Sitting Respiration 18 Pulse 87 Pulse Source Monitor Temp 97.6 F Temp Source Temporal Artery Scan Pulse Oximetry (%) 97 Oxygen Delivery Method Room Air Allergies/Home Meds Allergies & Medications Allergies No Known Allergies Allergy (Verified 12/19/24 09:07) Medication Reconciliation folic acid 400 mcg tablet 0.4 mg PO QDAY 11/05/24 [History Confirmed 12/19/24] Intake Visit Data Collection New Patient or Established: Established Patient (seen at [facility] within 3 years) Reason for Visit:: Weekly Supervisor Cigar Making Machine Required: Yes Supervisor Cigar Making Machine's name/title: Belle Dunbar Ma Do You Feel Safe at Home: Yes Authorities Contacted: N/A PCP or OBGYN visit in last 3 months: Yes Pain Present Currently: No Smoking Status Smoking Status: Never smoker Questionnaires Covid-19 Vaccine Questionnaire Has patient been vacinated for Covid-19 Have you been vacinated for Covid-19: No PHQ-9 PHQ-2 Over the last 2 weeks, how often have you been bothered by any of the following problems? 1. Little interest or pleasure in doing things: not at all 2. Feeling down, depressed, or hopeless: not at all Total score: 0 PHQ-9 8. Moving or speaking so slowly that other people could have noticed? - Or the opposite - being so fidgety or restless that you have been moving around a lot more than usual: not at all Source: Developed by Drs. Blas Chavez, Madeline Palencia, Ted Maldonado and colleagues, with an educational monica from [employer]. Depression screen completed yes Social History Living Situation History Lives With: Family Housing: House Tobacco History Smoking Status: Never smoker Second Hand Smoke Exposure: No Alcohol History Alcohol Intake: Never Substance Use History Substance Use: none Domestic Abuse History Do You Feel Safe at Home: Yes Past Medical History Past Medical History Have you ever been diagnosed with any of the following: Neurological Problems Cerebrovascular Accident (CVA): No Transient Ischemic Attacks (TIA): No Dementia: No Alzheimer's Disease: No Seizures: No Guillain-[place] Syndrome: No Cardiology Problems Myocardial Infarction: No Cardiac Arrhythmia: No Atrial Fibrillation: No Angina: No Heart Murmur: No Hypertension: No Respiratory Problems Chronic Obstructive Pulmonary Disease (COPD): No Asthma: No Bronchitis: No Pneumonia: No Tuberculosis: No Hx Cough: No Cough: No Wheezing: No Chest Deformities: No Smoking: No Stomache/Intestinal Problems Liver Cancer: No Hepatitis: No Cirrhosis: No Colitis: No Diverticulitis: No Diverticulosis: No Genital/Urinary Problems Renal Disease: No Kidney Stones: No Reproductive Problems Breast Cancer: No Endometriosis: No Fibroids: No Genital Herpes: No Gonorrhea: No Pelvic Inflammatory Disease: No Polycystic Ovarian Syndrome: No Previous Pregnancies: No Syphilis: No Uterine Prolapse: No Musculoskeletal Problems Muscular Dystrophy: No Myasthenia Gravis: No Marfan's Syndrome: No Bone Cancer: No Arthritis: No Rheumatoid Arthritis: No Osteoporosis: No Degenerative Disk Disease: No Gout: No Scoliosis: No Carpal Tunnel Syndrome: No Head,Eye,Nose,Throat Problems Cataracts: No Glaucoma: No Blind: No Retinal Detachment: No Macular Degeneration: No Chronic Ear Infections: No Deafness: No Eye Prosthesis: No Endocrine Problems Diabetes Mellitus Type 1: No Diabetes Mellitus Type 2: No Hypoglycemia: No Neetu's Syndrome: No [place]'s Disease: No Hyperthyroidism: No Hypothyroidism: No Thyroid Cancer: No Parathyroid Disease: No Pituitary Disease: No Systemic Lupus Erythematosus: No Syndrome of Inappropriate Antidiuretic Hormone: No Adrenal Disease: No Graves' Disease: No Blood Problems Anemia: No Leukemia: No Hemophilia: No Thalassemia: No Sickle Cell Disease: No Clotting Problems: No Psychologic Problems Schizophrenia: No Recreational Drug Use: No Bipolar Disorder: No Depression: No Anxiety: No Behavior Problems: No Self-Mutilation: No Attention Deficit Disorder: No Attention Deficit Hyperactivity Disorder: No Depression: No Post Traumatic Stress Disorder: No Eating Disorder: No Other Problems Hospitalization: No Down Syndrome: No Autism: No Developmental Delay: No Cosmetic Surgery: No Shingles: No Falls: No Blood Transfusions: No Blood Transfusion Reaction: No Anesthesia Reactions: No Organ Transplant: No Chemotherapy: No Radiation Therapy: No Hyperbaric Therapy: No MRSA: No Hepatitis A: No Hepatitis B: No Hepatitis C: No Communicable Disease: No Cancer: No Cervical Cancer: No Lung Cancer: No Ovarian Cancer: No Surgical History Angioplasty: No Appendectomy: No Bariatric Surgery: No Breast Surgery: No Cancer Surgery: No Carotid Endarterectomy: No Cholecystectomy: No Colectomy: No Colostomy: No Coronary Artery Bypass Graft: No Valve Replacement: No Herniorrhaphy: No History of Present Illness HPI Narrative Karla Gibson, a woman at 39 weeks and 2 days gestation, presents for a routine visit. Her estimated delivery date is 12-24-2024. The patient reports no current contractions or signs of labor onset. She denies experiencing any pressure in the pelvic area. The fetus has a normal heart rate of 155 beats per minute. The clinician notes that the patient's abdomen is quite tight, suggesting that labor may begin soon. Given her advanced gestational age, the patient is advised to have someone nearby who can drive her to the hospital when labor begins. No CTX/LOF/VB. FM not perceived. No LÓPEZ/ VS, Epig/RUQ Pain Visit OB Visit Log OB Flowsheet Initial Weight: Not Recorded Date -?-?-?-?-?-?-?-?-?-?-?-?- EGA Weight Edema CTX Effacement BP Fundal ht Pres Dilation Effacement Station Visit Note Alb Glu FHR Mov 11/05/24 -?-?-?-?-?-?-?-?-?-?-?-?- 33w 0d 64.07 kg 114/77 145 11/19/24 -?-?-?-?-?-?-?-?-?-?-?-?- 35w 0d 65.034 kg 122/82 160 active 12/19/24 -?-?-?-?-?-?-?-?-?-?-?-?- 39w 2d 66.224 kg 122/82 No CTX/LOF/VB. FM not perceived. No LÓPEZ/ VS, Epig/RUQ Pain - Schedule induction for next week (12/30 ) if spontaneous labor does not occur - Instruct patient to have someone nearb y who can drive her to the hospital - No further appointments sched uled - Will call hospital to book induction d ate - Provide patient with induction scheduling information 155 active BONY Calculator Estimated Delivery Date Method Current WG Current Estimate 12/24/24 Ultrasound #2 39w 3d Other Estimates 12/29/24 LMP (Certain) 38w 5d 12/26/24 Ultrasound #1 39w 1d Exam General Limitations: no limitations General Appearance: alert, in no apparent distress, comfortable, cooperative, healthy appearing, well developed and well groomed Head Head exam: atraumatic, normocephalic and normal inspection Chest Chest inspection: Present normal inspection and symmetric chest wall rise Abdominal Abdominal exam: Present soft and normal bowel sounds Psych Psychiatric exam: Present normal affect and normal mood Skin Skin exam: Present warm, dry, intact and normal color Assessment & Plan Diagnosis / Problem List (1) Supervision of high risk , unspecified, third trimester: Status: Acute Plan Karla Gibson, female, presents for visit at 39 weeks and 2 days gestation with an estimated delivery date of 12-24-2024. at 39 weeks and 2 days gestation Assessment: Patient is at 39 weeks and 2 days gestation with an estimated delivery date of 12-24-2024. heart rate is 155 bpm, which is within normal range. The patient reports no contractions or pressure sensations. On examination, the abdomen is noted to be quite tight, suggesting that labor may be imminent. Plan: - Schedule induction for next week (12/30) if spontaneous labor does not occur - Instruct patient to have someone nearby who can drive her to the hospital - No further appointments scheduled - Will call hospital to book induction date - Provide patient with induction scheduling information Educated the patient on labor signs, including regular contractions, lower back pain, and changes in vaginal discharge. Advised avoiding heavy lifting and getting adequate rest. Instructed to contact the office immediately if any signs occur. Discussed the importance of a balanced diet rich in folic acid, iron, and calcium, and provided a list of recommended and to-avoid foods. Emphasized avoiding high-sugar foods to reduce gestational diabetes risk. Encouraged hydration and frequent, small meals for energy.. Office Procedures OB Clinic LOC & Office Proc's Nursing/Assessment Patient Status: Established Patient OB Clinic Nursing Assessment: Medication Reconciliation, Update PMH in EMR and Vital Signs OB Clinic Coordination of Care: Complex Care and Chronic Disease 1-5, Consent,records obtained, informed consent, Education Simp Pt/Fam and Staff clarify orders Special Needs: Heart tones and Language special needs Established Patient Charge Established Patient Point Assignment: 115 Established Patient Point Charge: EP Level 3 (80-115)
[2024-12-19 09:06] VITALS: BP 122/82; PULSE 87; RESP 18; TEMP 36.4; O2SAT 97; BMI 30.6
== END 2024-12-19 09:27 | disposition home or self-care (01) ==
LOC: HODSOBC 08:59
PROVIDERS: PCP Obstetrics & Gynecology; Referring Provider Obstetrics & Gynecology; Supervising Provider Obstetrics & Gynecology; Visit Provider Obstetrics & Gynecology
DX: O09.93 Supervision of high risk pregnancy, unspecified, third trimester (principal); Z3A.39 39 weeks gestation of pregnancy
CPT/HCPCS: 99213; G0463

== ENCOUNTER 2024-12-31 12:02 | Outpatient (CLI) | payer MEDICAID, SELFPAY ==
[2024-12-31] VITALS (38 sets, daily range): BP systolic 135; BP diastolic 92; PULSE 88–111; O2SAT 93–98
--- NOTE | 2024-12-31 12:06 | XR_ITS ---
Examination: Biophysical profile, ultrasound Date and time of exam: December 31, 2024 12:17 PM INDICATIONS: Post dates with onset pelvic contractions today Technique: Multiple transabdominal sonographic images of the pelvis abdomen obtained. Attention is directed to the breathing movement, gross body movement, amniotic fluid volume and tone. Findings: Amniotic fluid index 5.6 cm Total biophysical profile is 8 of 8. breathing movement is 2. Gross body movement is 2. tone is 2. Qualitative amniotic fluid volume is 2 Impression: Biophysical profile is 8 of 8.
--- NOTE | 2024-12-31 15:52 | PC.NURSE ---
phone call made to md payne regarding pt reactive nst/bpp. bpp 04/12 arlene 5.6. informed md we are able to keep pt for iol today but the patient does not want to stay she wants to go into labor on her own and states she will agree to an iduction date at 41 weeks. pt currently has a due date of 12/30 and is 40 09/11 today. states for discharge planner to discuss all of these topics with md reynoso tomorrow for induction dates, also states pt should return for a repeat nst bpp .
== END 2024-12-31 16:15 | disposition home or self-care (01) ==
LOC: S4S1 12:02 → S4SX 12:02
PROVIDERS: Referring Provider Specialist; Visit Provider Specialist
DX: O48.0 Post-term pregnancy (principal); Z3A.40 40 weeks gestation of pregnancy
CPT/HCPCS: 59025; 76819

== ENCOUNTER 2025-01-02 17:43 | Inpatient (IN) | payer MEDICAID, SELFPAY ==
[2025-01-02] VITALS (16 sets, daily range): BP systolic 108–115; BP diastolic 63–73; PULSE 89–119; RESP 18–97; TEMP 36.7–36.9; O2SAT 94–97; BMI 31.1
[2025-01-02 18:31] LABS: ROM Kit Lot # 57807112; ROM Swab Mixed By: YOUNB; Swb Mxed in Solvent 1 min? Yes
[2025-01-02 18:32] LABS: Rupture of Fetal Membranes Negative (Negative)
--- NOTE | 2025-01-02 22:44 | PD.LDHP ---
Documentation for date of: 01/02/25 OB Labor/Induct. HPI History of Present Illness Chief complaint: Irregular contractions in triage : 4 Para: 3 Term pregnancies: 3 pregnancies: 0 Living children: 3 History of Abortions: Spontaneous and Elective: 0 History of Vaginal deliveries: 3 History of sections: No History of : No Date of last menstrual period: 03/24/24 OBNY: 12/30/24 Gestational Age (weeks): 40 Gestational Age (days): 3 Gestational age based on last menstrual period: 40 Indication for induction: post dates History of present illness: The patient is a 24-year-old -0-0-[address] Lewis at the [facility] for obstetrical care. She presented to triage with possible leaking and contractions. AmniSure was negative but patient was found to be zaki. She was to be scheduled this weekend on January 05 for an induction of labor for postdates. The patient ambulated around the unit for over an hour to 2 hours and was found to have made slight progress from 1 cm to 2 cm. As she is postdates and as the plan was to induce the patient in a couple days, and she was admitted for augmentation of labor. Her strep screen is negative. records are up-to-date and on the chart History of Present Adequate Care: Yes Ultrasounds: normal mid trimester US Obstetrical complications: none Medical complications: none Labs Maternal Blood Type: O Pos Labs: Negative: RPR, HIV, Chlamydia, Gonorrhea and Group Beta Strep and Unknown: Hepatitis B, Rubella Titre, Herpes Type 1, Herpes Type 2 and Covid-19 Past Medical History Surgical History SURGICAL: Negative Section Meds Home Medications and Allergies Home Medications ?Medication ?Instructions ?Recorded ?Confirmed ?Type folic acid 400 mcg tablet 0.4 mg PO QDAY 11/05/24 01/02/25 History Allergies Allergy/AdvReac Type Severity Reaction Status Date / Time No Known Allergies Allergy Verified 01/02/25 18:51 OB Exam Physical Exam Vital signs: Temp Pulse Resp BP Pulse Ox 98.1 F 90 18 108/63 96 01/02/25 17:45 01/02/25 22:39 01/02/25 17:45 01/02/25 22:39 01/02/25 20:13 Detailed Labor and Delivery Exam Effacement (%): 70 Cervix position: mid station: -2 Consistency: medium Presentation: Vertex Membranes: intact monitor accelerations: 15x15 monitor decelerations: None buttermaker variability: Moderate (11-25) Contraction frequency (min): Every 3 to 4 minutes OB Results Labs 01/02/25 21:30 OB Assessment & Plan Assessment and Plan (1) Supervision of high risk , unspecified, third trimester: Status: Acute (2) Post-dates : Status: Acute Assessment and plan: Admit for augmentation of labor with 50 mcg of Cytotec orally every 4 hours. Additional Plan Induction method: per misoprostol protocol Plan: induction and anticipate NVD (2) Post-dates Qualifiers: Post-term type: 40-42 weeks gestation Qualified Code(s): O48.0 - Post-term
[2025-01-02 22:54] LABS: Basophils % (Auto) 0 % (0-2.5); Eosinophils # (Auto) 0.1 Thou/mm3 (0.0-0.5); Eosinophils % (Auto) 0 % (0-10); Hematocrit 34.5 % (36.0-46.0); Immature Granulocytes % (Auto) 1 % (0-0); Lymphocytes # (Auto) 1.6 Thou/mm3 (1.0-4.8); Lymphocytes % (Auto) 13 % (10-50); Mean Corpuscular HGB Conc 34.8 g/dl (31.0-37.0); Mean Corpuscular Hemoglobin 28.9 pg (25.0-35.0); Mean Corpuscular Volume 83 fL (80-100); Monocytes # (Auto) 0.9 Thou/mm3 (0.0-0.8); Monocytes % (Auto) 7 % (0-12); Neutrophils # (Auto) 9.9 Thou/mm3 (1.8-7.7); Neutrophils % (Auto) 79 % (37-80); Nucleated Red Blood Cell % 0 /100 WBC (0); Platelet Count 300 Thou/mm3 (140-440); RDW Standard Deviation 44.5 fL (36.4-46.3); Red Blood Count 4.15 Miln/mm3 (4.00-5.20); White Blood Count 12.6 Thou/mm3 (3.6-11.0)
[2025-01-02 23:25] LABS: Syphilis Nonreactive (Nonreactive)
[2025-01-02 23:54] LABS: Rubella, IgG Antibody NonReact(Not Immune)
[2025-01-03] VITALS (30 sets, daily range): BP systolic 103–127; BP diastolic 57–74; PULSE 79–121; RESP 14–20; TEMP 36.6–37.2; O2SAT 96–100
[2025-01-03] MEDS: RINGERS LACTATED 500 ML 500 ML 999 ML IV (00:58)
[2025-01-03] MEDS: RINGERS LACTATED 1000 ML 1,000 ML 100 ML IV (01:00)
--- NOTE | 2025-01-03 01:16 | PD.LDPN ---
Documentation for date of: 01/03/25 OB Labor Progress Note Pain Control Pain control: tolerating well Pelvic Exam Dilation (cm): 4 Effacement (%): 80 station: -2 Amniotic membrane status: Intact Comments: Called to bedside to evaluate tracing. AROMed light meconium FSE placed after 4-minute decel to the 50s. Baby now having variable decelerations. Cervix feels scarred. Possible cryotherapy? Last baby was born 7 to 8 years ago. Will probably proceed with section as it is early in labor and baby is having decelerations. No augmentation or induction started yet Contractions Monitor mode: External Contraction frequency: 3 Contraction pattern: Coupling Contraction intensity: Moderate Status status: Category ll Assessment and Plan Plan OB labor note:
[2025-01-03] MEDS: ceFAZolin/D5W 2 GM IV 2 GM/100 ML BAG IV (01:28)
[2025-01-03] MEDS: CITRIC ACID/SODIUM CITR 15 ML UDC (BICITRA) 30 ML PO (01:28)
[2025-01-03] MEDS: FAMOTIDINE INJ 10 MG/ML VIAL 2 ML 20 MG IV (01:28)
--- NOTE | 2025-01-03 03:10 | ESOP_ITS ---
Operative Note - MACHINE PRECISION ENGRAVER Procedure Date of procedure: 01/03/25 Procedure Performed: Primary section Indication: Patient is a 24-year-old -0-0-3 admitted at 40-3/7 weeks in early labor. Patient was not being augmented and had a 4-minute decel to the 50s with slow return to baseline. She was examined and found to be 4 cm dilated amniotomy was performed as baby had recovered scalp electrode and a IUPC was placed. Patient's contractions were not strong and they were spaced about 4 minutes apart. Baby continued to have variable decelerations early in labor at 4 cm and the patient was consented for a primary low-transverse section for intolerance to labor. Pre-Op diagnosis: 1. Intrauterine at 40-3/7 weeks 2. intolerance to labor Post-Op diagnosis: Same Anesthesia type: Spinal Procedure description: After obtaining informed consent, the patient was brought back to the operating room and spinal anesthesia administered. She was then prepped and draped in the dorsal supine position with a leftward tilt in a normal sterile fashion. A Murcia catheter had been inserted to the patient's bladder. Patient was given 2 g of Ancef by anesthesia. A Pfannenstiel skin incision was made with a scalpel and carried down to the underlying fascia. The fascia was incised in the midline and the fascial incision extended laterally using Mayes scissors. The superior aspect of the fascia was grasped with Edilma clamps and the underlying rectus muscles dissected off using blunt and sharp dissection. This was repeated in the inferior aspect the incision. The rectus muscles were in the midline and the peritoneum was picked up and entered sharply with Metzenbaums This was extended superiorly and inferiorly with good visualization of the bladder. The bladder blade was inserted and the uterus was incised in a low transverse fashion using a scalpel above the bladder reflection. The uterine incision was extended laterally using blunt dissection with the surgeon's fingers. The bag whitlock was ruptured and thick meconium noted. The bladder blade was removed and the was delivered atraumatically. The cord was clamped and cut, and the was handed to the waiting pediatric staff. Cord blood was collected. Cord gases were saved . The placenta was then manually removed and handed off the operating field. The uterus was exteriorized and cleared of all clots and debris. The uterine incision was repaired using 0 Monocryl in a running locked fashion. Excellent hemostasis was noted. The uterus was returned to the patient's abdominal cavity and copious irrigation carried out with warm normal saline. The uterine incision was reexamined several times and noted to be hemostatic. After ensuring the rectus muscles were hemostatic these were reapproximated the midline using a running suture of 0 Monocryl. The fascia was closed with 0 Vicryl in a running fashion. The subcutaneous tissues were irrigated and found hemostatic. These were reapproximated using a running suture of 3-0 plain. The skin was closed with a subcuticular suture of 4-0 Monocryl. The patient tolerated the procedure well. Sponge lap and needle counts correct x 2. The patient went to the recovery area awake and in stable condition. Fluids: crystalloid Fluid amount (mL): 300 Urine output (mL): 150 Specimen: none Estimated blood loss (ml): 400 Findings: Liveborn female in the OA presentation with no nuchal cord and with thick meconium. Apgars were 8 and 9 weight was 7 pounds 2 ounces. The placenta was complete spontaneous grossly normal tubes uterus ovaries appeared grossly normal. No real reason for the decelerations in labor was noted. Complications: none Surgical staff Luis Baugh DIRECTOR OF MATERNITY SERVICES Operation Date: 01/03/25 02:40 <No data on this case meets the specified criteria> Diagnosis Discharge Diagnosis (1) Post-dates : Status: Acute (2) Supervision of high risk , unspecified, third trimester: Status: Acute (3) intolerance to labor, delivered, current hospitalization: Status: Acute (4) Delivery by section of full-term infant: Status: Acute Problem List Completed Was Problem List Reviewed/Reconciled?: Yes (1) Post-dates Qualifiers: Post-term type: 40-42 weeks gestation Qualified Code(s): O48.0 - Post-term
--- NOTE | 2025-01-03 03:21 | PD.LDDELS ---
Data (Rosa) Data Hx Section: No Reason for Primary Section: intolerance to labor Maternal Blood Type: O Pos Rubella Titre: Positive RPR: Non-reactive Labs: Negative: RPR, Hepatitis B, HIV, Chlamydia, Gonorrhea and Group Beta Strep : 4 Para: 3 Term: 3 Livin Delivery Data (Rosa) Labor Data Stimulated/Augmented: Yes Induction: Yes Method: AROM Rupture Type: AROM Amniotic Fluid: Meconium Stained Delivery Data EDC: 12/30/24 EDC calculated by:: LMP/early US confirmation Delivery Date: 01/03/25 Gestational age (weeks): 40 Gestational age (days): 3 Placenta Delivery Date: 01/03/25 Delivered by: Ronit Granados ([facility]) Delivery nurse: STELLA MARCH nurse: NICOLASA uRbin RN Advertising Consultant at delivery: No Support person(s) at delivery: FOB Other staff at delivery: [employer] RT MONSD RT Delivery Method Delivery: Delivery Type: Primary Presentation: Vertex Position: OA Anesthesia Type Primary Anesthesia: Spinal Secondary Anesthesia: None Delivery Room Medications Intrapartum Medications: Antibiotics Other Intrapartum Medications: No Post Delivery Medications N/A: No Placenta Placenta Delivery: Manual Placenta Cultures Obtained: No Placenta Sent for Examination: No Cord Sample: Cord Blood Obtained EBL Estimated blood loss (ml): 400 Umbilical Cord Umbilical Vessels: 3 Nuchal Cord: None Body Cord: None Complications Complications: none [place] Data (Rosa) Data order: 1 Infant Gender: Female Identification band number: [id number] weight (lbs): 3175.147 g [place] length: 52.07 cm Additional Comments Additional comments: apgars 8 and 9
[2025-01-03] MEDS: ACETAMINOPHEN IVPB 1,000 MG/100 ML VIAL 250 MG IV (03:25)
[2025-01-03] MEDS: OXYTOCIN in NS 20 units 20 UNIT/1,000 ML BAG 125 UNIT IV (04:00)
[2025-01-03] MEDS: IBUPROFEN TAB 400 MG TABLET 800 MG PO ×2 (13:37→23:05)
[2025-01-03] MEDS: SIMETHICONE 80 MG CHEW PO (13:39)
[2025-01-04 02:43] LABS: Basophils % (Auto) 0 % (0-2.5); Eosinophils # (Auto) 0.1 Thou/mm3 (0.0-0.5); Eosinophils % (Auto) 1 % (0-10); Hematocrit 32.5 % (36.0-46.0); Hemoglobin 11.2 g/dL (12.0-16.0); Immature Granulocytes % (Auto) 1 % (0-0); Immature Granulocytes Auto 0.09 Thou/mm3 (0.00-0.00); Lymphocytes # (Auto) 1.9 Thou/mm3 (1.0-4.8); Lymphocytes % (Auto) 17 % (10-50); Mean Corpuscular HGB Conc 34.5 g/dl (31.0-37.0); Mean Corpuscular Hemoglobin 28.8 pg (25.0-35.0); Mean Corpuscular Volume 84 fL (80-100); Monocytes # (Auto) 0.9 Thou/mm3 (0.0-0.8); Monocytes % (Auto) 8 % (0-12); Neutrophils # (Auto) 8.1 Thou/mm3 (1.8-7.7); Neutrophils % (Auto) 73 % (37-80); Nucleated Red Blood Cell % 0 /100 WBC (0); Platelet Count 258 Thou/mm3 (140-440); RDW Standard Deviation 45.2 fL (36.4-46.3); Red Blood Count 3.89 Miln/mm3 (4.00-5.20); White Blood Count 11.1 Thou/mm3 (3.6-11.0)
[2025-01-04 03:59] VITALS: BP 111/76; PULSE 85; RESP 18; TEMP 36.4; O2SAT 97
[2025-01-04] MEDS: HYDROcodone/APAP 5/325 TABLET 2 TAB PO ×2 (07:43→14:25)
[2025-01-04] MEDS: SIMETHICONE 80 MG CHEW PO ×2 (07:43→13:20)
[2025-01-04 08:20] VITALS: BP 121/72; PULSE 76; RESP 18; TEMP 36.6; O2SAT 97
--- NOTE | 2025-01-04 09:23 | ESPR_ITS ---
RE: PIERRE HURTADO : 2000 DATE OF SERVICE: 01/04/2025 S: Postop day #1, the patient denies any problem or complaints. She is voiding. She is ambulating. She is tolerating regular diet. She is passing flatus. She denies any excessive vaginal bleeding. She denies any dizziness or lightheadedness. She denies any chest pain, palpitations, shortness of breath, or lower extremity pain. O: Vital Signs: Blood pressure 111/76, heart rate 85, respirations 18, temperature 97.6, pulse oximetry 97% on room air. Lungs: Clear to auscultation bilaterally. Heart: Regular rate and rhythm. Abdomen: Dressing dry and intact. Fundus is firm. Extremities: Nontender. LABORATORY DATA: Hemoglobin pre-delivery is 12.0, post-delivery 11.2. ASSESSMENT: Postop day #1 status post delivery. P: Remove dressing. Discontinue IV. Encourage ambulation. support. Possible discharge home tomorrow. DT: 07:59:31 TT: 09:22:00 Ref: [id number] - TID: [id number]
[2025-01-04 11:00] VITALS: BP 111/76; PULSE 82; RESP 17; TEMP 36.6; O2SAT 97
[2025-01-04] MEDS: IBUPROFEN TAB 400 MG TABLET 800 MG PO ×2 (13:20→20:50)
[2025-01-04 20:19] VITALS: BP 108/68; PULSE 74; RESP 19; TEMP 36.4; O2SAT 96
[2025-01-05 04:57] VITALS: BP 128/85; PULSE 71; RESP 19; TEMP 36.6; O2SAT 98
[2025-01-05] MEDS: IBUPROFEN TAB 400 MG TABLET 800 MG PO (05:09)
[2025-01-05 08:20] VITALS: BP 106/66; PULSE 76; RESP 16; TEMP 36.4; O2SAT 97
[2025-01-05] MEDS: MEASLES, MUMPS & RUBELLA VACC 0.5 ML VIAL SCi (08:32)
--- NOTE | 2025-01-05 09:37 | ESPR_ITS ---
Subjective Subjective Interval history: The patient is a 24-year-old G4 now P4004 status post primary at approximately 3:00 in the morning on 01/03/2025 for intolerance to labor. I performed her . This morning she is postoperative day #2, she is sitting in a chair resting comfortably and breast-feeding her baby. Her is at bedside. She denies heavy bleeding cramping or fevers. She is ready to go home. All translation is through the translation service at bedside. Patient is Montenegrin-speaking only. Exam Vital Signs Temp Pulse Resp BP Pulse Ox O2 Del Method 97.6 F 76 16 106/66 97 Room Air 01/05/25 08:20 01/05/25 08:20 01/05/25 08:20 01/05/25 08:20 01/05/25 08:20 01/05/25 08:20 Narrative Exam Patient is alert and oriented x 3 in no apparent distress. She is pleasant and appears well rested. Her fundus is firm nontender her incisions clean dry and intact. Her extremities show no edema and no erythema bilaterally. Objective Labs 01/04/25 02:20 Assessment & Plan Problem List (1) Post-dates : Status: Acute (2) Supervision of high risk , unspecified, third trimester: Status: Acute (3) intolerance to labor, delivered, current hospitalization: Status: Acute (4) Delivery by section of full-term : Status: Acute Assessment and plan: Discharge instructions given. No heavy lifting, intercourse, tampons, douching, bathtubs or swimming x 6 weeks. Follow-up at the [facility] in 1 week. Call for appointment Tuesday Time Spent With Patient Time: Total time spent is greater than 50% in coordination of care (as documented) at patient's floor/unit and/or counseling patient: Time with patient: 25 - 35 minutes
--- NOTE | 2025-01-05 09:42 | PD.LDDS ---
DS: Providers Provider Date of admission: 01/02/25 18:21 Primary care physician: Physician No Primary/Family Admitting Provider: Ronit Granados MD ([facility]) Attending Provider on Admission: Marlon Malhotra MD Consults: 01/03/25 03:23 Referral Routine Comment: Attending Provider on DC: Ronit Granados MD ([facility]) Discharging Provider: Ronit Granados MD ([facility]) Anticipated date of discharge: 01/05/25 DS: Diagnosis Discharge Diagnosis (1) Delivery by section of full-term : Status: Acute Assessment & Plan: Discharge instructions given. Discharged home postoperative day #2 in stable condition. Call for heavy bleeding, fevers, redness around the incision, severe depression. Follow-up at the [facility] in 1 week. Problem List Completed Was Problem List Reviewed/Reconciled?: Yes Summary/Hosp Course Brief History: The patient is a 24-year-old -0-0-[address] Lewis at the [facility] for obstetrical care. She presented to triage with possible leaking and contractions. AmniSure was negative but patient was found to be zaki. She was to be scheduled this weekend on January 05 for an induction of labor for postdates. The patient ambulated around the unit for over an hour to 2 hours and was found to have made slight progress from 1 cm to 2 cm. As she is postdates and as the plan was to induce the patient in a couple days, and she was admitted for augmentation of labor. Her strep screen is negative. records are up-to-date and on the chart Peripartum Data Delivery Method: Low Transverse Episiotomy Description: None Procedures: Procedures Operation Date: 01/03/25 02:40 Actual Procedure Side Surgeon p in OB Not Applicable Ronit Granados ([facility])MD complications: none Status at Discharge Cognitive/behavioral status at discharge: Patient is alert and oriented x 3 in no apparent distress Functional status at discharge: independent ambulation Overall status at discharge: patient is progressing back to baseline Time Spent with Patient Time attestation: Total time spent providing and/or coordinating discharge services: Time spent: Less than 30 minutes Specific discharge activities: No heavy lifting, no exercise except walking, no tampons, no douching, no bathtubs, no swimming x 6 weeks Exam Vital Signs Temp Pulse Resp BP Pulse Ox O2 Del Method 97.6 F 76 16 106/66 97 Room Air 01/05/25 08:20 01/05/25 08:20 01/05/25 08:20 01/05/25 08:20 01/05/25 08:20 01/05/25 08:20 Narrative Exam Patient is alert and oriented x 3 in no apparent distress. She is resting comfortably. Fundus is firm nontender, incision is clean dry and intact. Extremities show no edema or erythema bilaterally. Discharge Plan Plan Patient Disposition: HOME (Self Care) Disposition Comment: Stable Patient condition on transfer: Stable Prescriptions/Referrals Prescriptions/Med Rec: New acetaminophen 325 mg Tablet 650 mg PO Q6HR PRN (Reason: Patient rated pain of 3) Qty: 60 0RF ibuprofen 400 mg Tablet 800 mg PO Q8HR PRN (Reason: Pain Scale 4-6 (Moderate) Qty: 60 0RF Continued folic acid 400 mcg tablet 0.4 mg PO QDAY Referrals: Roberta ([facility]),Ronit Madrid MD [Physician] - No Primary/Family,Physician [Primary Care Provider] - Patient/Caregiver Discharge Instructions Discharge Activity: activity as tolerated Other Discharge Activity Instructions:: No heavy lifting, intercourse, tampons, douching, or exercise x 6 weeks. Walk frequently. Other Discharge Diet Instructions: General Diet as tolerated Education Materials: Breast Care After , After a , : Caring for Yourself, C Section Dc Print Language: Ecuadorean Activity Restrictions/Additional Instructions: Call with heavy vaginal bleeding, fevers, chills, severe depression or wound incision concerns. Follow-up in [address] Lewis or Dr Granados at the [facility]. Stand Alone Forms: Renetta Award Info., Patient Portal Info Letter Discharge Order Discharge Orders: Discharge (Routine); Ordered 01/05/25 Ordered By: Ronit Granados ([facility]) Planned Discharge Date 01/05/25
== END 2025-01-05 11:19 | disposition home or self-care (01) | DRG 540 ==
LOC: S4SX 21:45 → S4NX 01-03 02:13
PROVIDERS: Obstetrics & Gynecology; Admitting Provider Obstetrics & Gynecology; Visit Provider Specialist
PROC: 10D00Z1 Extraction of Products of Conception, Low, Open Approach (ICD-10-PCS; CPT 59514; principal; 2025-01-03 02:40)
DX: O48.0 Post-term pregnancy (principal); Z37.0 Single live birth; Z3A.40 40 weeks gestation of pregnancy; O76 Abnormality in fetal heart rate and rhythm complicating labor and delivery; O77.0 Labor and delivery complicated by meconium in amniotic fluid
CPT/HCPCS: 36415; 59025; 59409; 84112; 85025; 86762; 86780; 86850; 86900; 86901; 90707; 94762; A4649; J0131; J0689; J2274; J2371; J2590; J3490; J7120; A9270; J2270

== ENCOUNTER 2025-01-15 13:03 | Outpatient (AMB) | payer MEDICAID, SELFPAY ==
--- NOTE | 2025-01-15 13:05 | AMB.OBPP ---
Vital Signs 01/15/25 13:11 Height 1.5 m Height Method Stated Weight 2126.214 g Weight Measurement Method Standing Scale BMI 0.9 BP 134/84 H Blood Pressure Source Automatic Cuff Blood Pressure Location Left Upper Arm Position Sitting Respiration 18 Pulse 93 Pulse Source Monitor Temp 98 F Temp Source Oral Pulse Oximetry (%) 97 Oxygen Delivery Method Room Air Allergies/Home Meds Allergies & Medications Allergies No Known Allergies Allergy (Verified 01/15/25 13:12) Medication Reconciliation folic acid 400 mcg tablet 0.4 mg PO QDAY 11/05/24 [History Confirmed 01/15/25] acetaminophen 325 mg tablet 650 mg (2 x 325 mg) PO Q6HR PRN Patient rated pain of 3 #60 tabs 01/05/25 [Rx Confirmed 01/15/25] ibuprofen 400 mg tablet 800 mg (2 x 400 mg) PO Q8HR PRN Pain Scale 4-6 (Moderate #60 tabs 01/05/25 [Rx Confirmed 01/15/25] Intake Visit Data Collection New Patient or Established: Established Patient (seen at [facility] within 3 years) Reason for Visit:: follow-up after section delivery on January 03 Seen by Clinical Staff ONLY (RN/MA): No Conveyor Console Operator Required: Yes Conveyor Console Operator's name/title: JOSE BETANCOURT Do You Feel Safe at Home: Yes Authorities Contacted: N/A PCP or OBGYN visit in last 3 months: Yes Hx Now: No Are you currently on any form of Control: No Pain Present Currently: No Pain Scale Used: Gandhi-Fung/Numerical Pain scale:: 0 Smoking Status 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[employer]: Past Medical History Past Medical History: No Hx Neurological Disorders, No Hx Hypothyroidism, No Hx Hyperthyroidism, No Hx Breast Cancer, No Hx Cardiac Disorders, No Hx Hypertension, No Hx Cancer, No Hx Blood Disorders, No Hx Anemia, No Hx Gastrointestinal Disorders, No Hx Renal Disease, No Hx Diabetes Mellitus Type 1, No Hx Diabetes Mellitus Type 2, No Psychiatric Problems and No Hx Polycystic Ovarian Syndrome Questionnaires Covid-19 Vaccine Questionnaire Has patient been vacinated for Covid-19 Have you been vacinated for Covid-19: No Social History Living Situation History Lives With: Family Housing: Apartment Tobacco History Smoking Status: Never smoker Second Hand Smoke Exposure: No Alcohol History Alcohol Intake: Never Substance Use History Substance Use: none Domestic Abuse History Do You Feel Safe at Home: Yes EPDS - PP Depression Screening [place] Pospartum Depression Screen I have been able to laugh and see the funny side of things: (0) As much as I always could I have looked forward with enjoyment to things: (0) As much as I ever did I have blamed myself unnecessarily when things went wrong: (0) No, never I have been anxious or worried for no good reason: (0) No, not at all I have felt scared or panicky for no very good reason: (0) No, not at all Things have been getting on top of me: (0) No, I have been coping as well as ever I have been so unhappy that I have had difficulty sleeping: (0) No, not at all I have felt sad or miserable: (0) No, not at all I have been so unhappy that I have been crying: (0) No, never The thought of harming myself has occurred to me: (0) Never Total Score: EPDS Score: Referral is indicated for score of 9 or more, suicidal, or if provider believes patient is depressed regardless of score.: 0 EPDS completed yes HPI Interval History: Karla Gibson, a Swedish-speaking female patient, presents for a follow-up visit approximately 12 days after delivering her baby on January 03, 2025. She is currently . The patient's primary reason for the visit is to assess her recovery, particularly the healing of her surgical incision. She has been using a prescribed treatment (likely a topical medication or dressing) since the delivery. The patient reports no specific complaints or concerns regarding her recovery or the baby's health. Was or delivery considered high risk: No Delivery type: Was labor induced: no Gestational age at delivery (weeks): 40 Delivery date: 01/03/25 Delivering provider: Delivery complications: Yes Delivery complications comment: EMERGENCY C SECTION Is patient : Yes Is patient sexually active: No Exam Narrative Physical exam: Abdomen: Incision site examined. Incision described as beautiful and looks good . Skin: Skin at incision site has joined. Office Procedures [facility] LOC & Office Proc's Nursing/Assessment Patient Status: Established Patient [facility] Nursing Assessment: Medication Reconciliation, Update PMH in EMR and Vital Signs OB Clinic Coordination of Care: Complex Care and Chronic Disease 1-5, Education Complex Pt/Fam, Consent,records obtained, informed consent, Results/Orders obtained and Staff clarify orders Established Patient Charge Established Patient Point Assignment: 95 Established Patient Point Charge: EP Level 3 (80-115) Post Follow-up Visit Post Follow up Visit: Yes Assessment & Plan Diagnosis / Problem List (1) Delivery by section of full-term infant: Status: Acute (2) Encounter for routine follow-up: Status: Acute (3) Encounter for surgical aftercare following surgery on the genitourinary system: Status: Acute Plan Ramya Gibson, female, patient who delivered on January 03, 2025, presenting for follow-up examination. status post section Assessment: Patient is 12 days following section delivery on January 03, 2025. Incision site was examined and found to be healing well, described as beautiful with skin edges already joined. Patient is currently . Plan: - Continue current wound care regimen until one month - Maintain proper hygiene: take baths, clean incision site, keep area dry - No bandage or cover needed on incision site - Wear support garment as much as possible - Follow up in one month for visit - Combine next visit with appointment for exponent (likely referring to contraceptive implant) Care Reviewed delivery summary and any complications: Yes
[2025-01-15 13:11] VITALS: BP 134/84; PULSE 93; RESP 18; TEMP 36.6; O2SAT 97
== END 2025-01-15 14:04 | disposition home or self-care (01) ==
LOC: HODSOBC 13:03
PROVIDERS: Supervising Provider Obstetrics & Gynecology; Visit Provider Obstetrics & Gynecology
DX: Z39.2 Encounter for routine postpartum follow-up (principal)
CPT/HCPCS: 99213; G0463

== ENCOUNTER 2025-02-14 13:54 | Outpatient (AMB) | payer MEDICAID, SELFPAY ==
[2025-02-14 14:26] VITALS: BP 123/77; PULSE 87; RESP 18; TEMP 36.2; O2SAT 98; BMI 28.2
--- NOTE | 2025-02-14 14:26 | GYNCLNT_ITS ---
Vital Signs 02/14/25 14:26 Height 1.5 m Height Method Stated Weight 63.503 kg Weight Measurement Method Standing Scale BMI 28.2 BP 123/77 Blood Pressure Source Automatic Cuff Blood Pressure Location Left Upper Arm Position Sitting Respiration 18 Pulse 87 Pulse Source Monitor Temp 97.2 F Temp Source Oral Pulse Oximetry (%) 98 Oxygen Delivery Method Room Air Allergies/Home Meds Allergies & Medications Allergies No Known Allergies Allergy (Verified 02/14/25 14:29) Medication Reconciliation folic acid 400 mcg tablet 0.4 mg PO QDAY 11/05/24 [History Confirmed 02/14/25] acetaminophen 325 mg tablet 650 mg (2 x 325 mg) PO Q6HR PRN Patient rated pain of 3 #60 tabs 01/05/25 [Rx Confirmed 02/14/25] ibuprofen 400 mg tablet 800 mg (2 x 400 mg) PO Q8HR PRN Pain Scale 4-6 (Moderate #60 tabs 01/05/25 [Rx Confirmed 02/14/25] Intake Visit Data Collection New Patient or Established: Established Patient (seen at [facility] within 3 years) Reason for Visit:: NEXPLANAON INSERTION Seen by Clinical Staff ONLY (RN/MA): No Applications Administrator Required: Yes Applications Administrator's name/title: JOSE BETANCOURT MA Do You Feel Safe at Home: Yes Authorities Contacted: N/A PCP or OBGYN visit in last 3 months: Yes Date of Last PCP or OBGYN visit: 01/15/25 Hx Now: No Are you currently on any form of Control: No Pain Present Currently: No Pain Scale Used: Gandhi-Fung/Numerical Pain scale:: 0 Smoking Status Smoking Status: Never smoker 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 Menstrual regularity: regular Flow: normal Monthly: Yes Menopausal: No 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 Medical History Past Medical History: No Hx Neurological Disorders, No Hx Hypothyroidism, No Hx Hyperthyroidism, No Hx Breast Cancer, No Hx Cardiac Disorders, No Hx Hypertension, No Hx Cancer, No Hx Blood Disorders, No Hx Anemia, No Hx Gastrointestinal Disorders, No Hx Renal Disease, No Hx Diabetes Mellitus Type 1, No Hx Diabetes Mellitus Type 2, No Psychiatric Problems and No Hx Polycystic Ovarian Syndrome Questionnaires Covid-19 Vaccine Questionnaire Has patient been vacinated for Covid-19 Have you been vacinated for Covid-19: Yes PHQ-9 PHQ-2 Over the last 2 weeks, how often have you been bothered by any of the following problems? 1. Little interest or pleasure in doing things: not at all 2. Feeling down, depressed, or hopeless: not at all Total score: 0 PHQ-9 3. Trouble falling or staying asleep, or sleeping too much: Not at all 4. Feeling tired or having little energy: Not at all 5. Poor appetite or overeating: Not at all 6. Feeling bad about yourself - or that you are a failure or have let yourself or your family down: Not at all 7. Trouble concentrating on things, such as reading the newspaper or watching television: Not at all 8. Moving or speaking so slowly that other people could have noticed? - Or the opposite - being so fidgety or restless that you have been moving around a lot more than usual: not at all 9. Thoughts that you would be better off or of hurting yourself in some way: Not at all Total score: 0 If you checked off any problems, how difficult have these problems made it for you to do your work, take care of things at home, or get along with other people?: not difficult at all Source: Developed by Drs. Blas Chavez, Madeline Palencia, Ted Maldonado and colleagues, with an educational monica from [employer]. Depression screen completed yes Social History Living Situation History Lives With: Family Housing: Apartment Tobacco History Smoking Status: Never smoker Second Hand Smoke Exposure: No Alcohol History Alcohol Intake: Never Substance Use History Substance Use: none Domestic Abuse History Do You Feel Safe at Home: Yes History of Present Illness HPI Narrative Patient presents for evaluation of her incision and for Nexplanon implant insertion. She reports that the incision is causing some trouble, specifically noting that the stitches on the inside are pulling. She has no other reported complaints or symptoms related to her recent delivery. The patient has a history of previous Nexplanon use, with evidence of prior insertions on both arms. She mentions no issues or concerns related to her previous experiences with the contraceptive implant. The patient is here for a new Nexplanon insertion, indicating a desire to continue this form of contraception. She has a history of one , delivered via . Her obstetric history is G1 T1 L1. Her surgical history includes a recent section, previous Nexplanon implant insertions, and a Nexplanon implant removal and reinsertion. One previous implant was placed incorrectly and had to be removed and replaced. The patient has a baby and is currently seeking contraception through Nexplanon implant insertion. Exam Narrative Physical exam: - Abdomen: incision site observed. Incision appears to be healing well. Small piece of dried skin noted near incision site. - Skin: Olive observed on left arm, likely from previous Nexplanon insertion. Additional olive noted on the opposite side, identified as incorrect placement s ite. General General Appearance: alert, in no apparent distress and healthy appearing Head Head exam: atraumatic Neck Neck exam: Present normal inspection and trachea midline Chest Chest inspection: Present normal inspection and symmetric chest wall rise External exam: Present normal external exam; Absent tenderness Neuro Neurological exam: Present oriented X3 Psych Psychiatric exam: Present normal affect and normal mood Office Procedures OB Clinic LOC & Office Proc's Nursing/Assessment Patient Status: Established Patient OB Clinic Nursing Assessment: Medication Reconciliation, Update PMH in EMR and Vital Signs OB Clinic Coordination of Care: Education Complex Pt/Fam, Consent,records o btained, informed consent, Education Simp Pt/Fam and Staff clarify orders Special Needs: Language special needs Established Patient Charge Established Patient Point Assignment: 80 In Clinic Procedures Insertion of Control other NOT IUD's: Yes Assessment & Plan Diagnosis / Problem List (1) Encounter for surgical aftercare following surgery on the genitourinary system: Status: Acute (2) Encounter for routine follow-up: Status: Acute (3) Insertion of subcutaneous contraceptive implant performed: Status: Acute Plan Post- Section Incision Plan: - Discontinue use of abdominal binder. - Reassure patient about normal healing process. - No further interventions required for incision care. Contraception Management Plan: - Nexplanon implant inserted in left arm using sterile technique. - Keep pressure dressing in place for 3-4 hours. - Remove band-aid the following day. - Avoid putting pressure on the implanted arm for a few days. - No restrictions on daily activities. - Return if experiencing any problems. Procedure Note: - Procedure: Nexplanon Implant Insertion - Site: Left Arm - Anesthesia: 2cc of Lidocaine - Lot Number: [id number] - Technique: Sterile insertion performed Patient was brought to the procedure room for Nexplanon implant insertion. After identifying the left upper inner arm as the insertion site, the skin was prepped and draped in sterile fashion. Local anesthesia was achieved using 2cc of 1% lidocaine. Using the preloaded applicator, the Nexplanon implant (Lot #[id number]) was inserted subdermally without difficulty. Placement was confirmed by palpation. Sterile dressing applied. Patient tolerated the procedure well without immediate complications.
== END 2025-02-14 14:26 | disposition home or self-care (01) ==
LOC: HODSOBC 13:54
PROVIDERS: PCP Obstetrics & Gynecology; Referring Provider Obstetrics & Gynecology; Supervising Provider Obstetrics & Gynecology; Visit Provider Obstetrics & Gynecology
DX: Z30.017 Encounter for initial prescription of implantable subdermal contraceptive (principal); Z39.2 Encounter for routine postpartum follow-up
CPT/HCPCS: 11981; J3490; J7301